=== PATIENT | male | born 1950 | race Caucasian/White ===

== ENCOUNTER 2019-02-20 09:04 | Inpatient (IN) | payer MEDICARE, OTHER ==
--- NOTE | 2019-02-19 16:45 | Pre-op HX & Phy Repo 2 SIG ---
DATE OF ADMISSION: 02/20/2019 DATE OF PLANNED SURGERY: Scheduled for admission, 02/20/2019. 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 The patient has a past history of ulcerative colitis that developed at age 18. In 1972, he underwent proctocolectomy with Gely ileostomy. In 1991, by another surgeon, he underwent creation of a Sunshine continent ileostomy. He underwent stoma revision in 2001 and again in November 2017, and ever since that surgery he has had pain whenever he intubates to insert his drainage catheter to evacuate stool and that happens with every intubation and he has bleeding as well. He has had to use a 26-Chinese silicon catheter instead of the normal 30-Chinese silicone catheter. He is scheduled to undergo pouch endoscopy and surgical correction of this problem. He understands that he may require laparotomy with creation of a new valve and stoma, possible relocation of the stoma to the left side. MEDICATIONS: Lisinopril for hypertension and statin for high cholesterol. ALLERGIES: None. OPERATIONS: Only the above. PHYSICAL EXAMINATION: The patient is 5 feet 9 inches, 160 pounds. [place] and will be examined upon arrival and dictated separately. IMPRESSION: 1. Malfunctioning Sunshine continent ileostomy with recurrent stoma stricture and stenosis. 2. History of ulcerative colitis. 3. STATUS POST MULTIPLE ABDOMINAL OPERATIONS: 3.1 Proctocolectomy and Gely ileostomy in 1972. 3.2 Sunshine continent intestinal reservoir in 1991. 3.3 revision of stoma in 2001. 3.4 Revision of stoma stricture in November 2017. 4. Hypertension. DISCUSSION: I have had a full discussion with the patient regarding his condition and the surgical options. He usually intubates four times a day and occasionally at night. I will have a detailed discussion again in person when [place] and he may be able to just have a stoma revision, but otherwise will need laparotomy with creation of a new valve and stoma with possible relocation to the left side. Osito Rosenbaum M.D. DR: PINA JOB#: [id number] CC:
[~2019-02-20] VITALS: Ht 175.3 cm; Wt 69.0 kg
--- NOTE | 2019-02-20 09:01 | Anethesia Preoperative Eval ---
Anesthesia Pre-op PMH/ROS General Date of Evaluation: Feb 20, 2019 Time of Evaluation: 09:00 Anesthesiologist: sonja ASA Score: ASA 2 Mallampati Score Class I : Soft palate, uvula, fauces, pillars visible Class II: Soft palate, uvula, fauces visible Class III: Soft palate, base of uvula visible Class IV: Only hard plate visible Mallampati Classification: Class II Surgeon: Robi Diagnosis: Malfunction of Sunshine Surgical Procedure: Revision of Sunshine pouch Anesthesia History: none Family History: no anesthesia problems Medications: see eMAR Patient NPO?: Yes NPO Date: Feb 20, 2019 NPO Time: 00:01 Past Medical History Cardiovascular: Reports: HTN; Denies: CAD, [place], valve dz, arrhythmia, other Pulmonary: Denies: asthma, COPD, MAURICE, other Gastrointestinal/Genitourinary: Reports: other - U Colitis; Denies: GERD, CRI, ESRD Neurologic/Psychiatric: Denies: dementia, depression/anxiety, TIA, other Endocrine: Denies: DM, hypothyroidism, steroids, other HEENT: Denies: cataract (L), cataract (R), glaucoma, [place] (L), [place] (R), other Hematology/Immune: Denies: anemia, DVT, bleeding disorder, other Musculoskeletal/Integumentary: Denies: OA, RA, DJD, DDD, edema, other PMH Narrative: 1. Malfunctioning Sunshine continent ileostomy with recurrent stoma stricture and stenosis. 2. History of ulcerative colitis. PSxH Narrative: multiple abd operations Anesthesia Pre-op Phys. Exam Physician Exam Constitutional: NAD Neurologic: CN 2-12 intact Cardiovascular: RRR Respiratory: CTA Gastrointestinal: S/NT/ND Airway Exam Mallampati Score: Class II MO: full ROM: full Dentures: no upper, no lower Joanna Naik CRNA Feb 20, 2019 09:01
[~2019-02-20 09:04] MED LIST: Heparin1,000 units/500ml Premix(Conc:2 units/ml) ONE; Lidocaine 1% Plain 30 ml INJ ONE
--- NOTE | 2019-02-20 09:30 | NUR ---
NURSE NOTES: Patient arrived to unit via direct admission. Patient is awake, alert and oriented, accompanied by his . Oriented to room. Patient reporting no pain at this time. Patient provided with receptacles for urine and ileo output, educated on I/O policy, patient verbalized understanding. Will follow through with orders.
[2019-02-20] MEDS ORDERED: SIMVASTATIN20 MG ORAL (10:12)
[2019-02-20] MEDS ORDERED: BACLOFEN10 MG ORAL (10:12)
[2019-02-20] MEDS ORDERED: LISINOPRIL5 MG ORAL (10:12)
[2019-02-20] MEDS ORDERED: MELOXICAM7.5 MG PO (10:12)
[2019-02-20] MEDS ORDERED: Lidocaine 1% Plain 30 ml INJ PRN (10:30)
[2019-02-20] MEDS ORDERED: Heparin1,000 units/500ml Premix(Conc:2 units/ml) IV PRN (10:30)
[2019-02-20] MEDS ORDERED: Zolpidem 5mg tab ORAL PRN (10:30)
[2019-02-20 11:32] LABS: BASOPHILS % (AUTO) 0.9 % (0.0-2.0); EOSINOPHILS % (AUTO) 4.9 % (0.0-3.0); HEMATOCRIT 44.8 % (42.0-52.0); HEMOGLOBIN 14.7 G/DL (14.2-18.0); LYMPHOCYTES % (AUTO) 13.8 % (20.0-45.0); MEAN CORPUSCULAR VOLUME 93 FL (80-99); NEUTROPHILS % (AUTO) 72.4 % (45.0-75.0); PLATELET COUNT 248 K/UL (150-450); RED BLOOD COUNT 4.82 M/UL (4.70-6.10); WHITE BLOOD COUNT 6.8 K/UL (4.8-10.8)
--- NOTE | 2019-02-20 11:38 | NUR ---
NURSE NOTES: Reviewed patient's home medications with Dr. Rosenbaum. Order received to continue patient's home medication Lisinopril and hold all others. Orders entered.
--- NOTE | 2019-02-20 11:42 | NUR ---
NURSE NOTES: Dr. Rosenbaum ordered for a STAT 2D echo due to abnormal EKG results. Order entered, called cardiology at extension [phone] and informed tech of order. Per tech, they can do 2D echo in approximately one hour. Informed Dr. Rosenbaum and stated ok to do echo in an hour.
[2019-02-20 11:51] VITALS: BP 165/85
[2019-02-20 11:57] LABS: ANION GAP 8 mmol/L (5-15); BLOOD UREA NITROGEN 15 mg/dL (7-18); CALCIUM 8.8 MG/DL (8.5-10.1); CARBON DIOXIDE 30 MMOL/L (21-32); CHLORIDE 103 MMOL/L (98-107); CREATININE 1.1 MG/DL (0.55-1.30); POTASSIUM 4.7 MMOL/L (3.5-5.1); SODIUM 141 MMOL/L (136-145)
--- NOTE | 2019-02-20 11:58 | Diagnostic Imaging Report ---
Indication: Cough Comparison: None A single view chest radiograph was obtained. Findings: There is a scarring suspected at the left lung base with the blunting of the left costophrenic angle and slight pleural tenting. Heart size is normal. No infiltrate identified in the examination. The bones are unremarkable. IMPRESSION: No acute disease. Suspected pleural parenchymal scarring at the left lung base
--- NOTE | 2019-02-20 12:00 | NUR ---
NURSE NOTES: Informed Dr. Rosenbaum of patient's increased blood pressure, no new orders given at this time. Per MD, patient to be evaluated by cardiology.
[2019-02-20 12:08] LABS: ALANINE AMINOTRANSFERASE 21 U/L (12-78); ALBUMIN 3.6 G/DL (3.4-5.0); ALBUMIN/GLOBULIN RATIO 0.9 (1.0-2.7); ALKALINE PHOSPHATASE 82 U/L (46-116); ASPARTATE AMINO TRANSFERASE 15 U/L (15-37); BILIRUBIN,TOTAL 2.3 MG/DL (0.2-1.0)
[2019-02-20] MEDS: Neomycin Sulfate 500mg Tab ORAL SCH ×3 (12:18→19:58)
--- NOTE | 2019-02-20 12:48 | Pre-Procedure Note/Attestation ---
Pre-Procedure Note/Attestation Complete Prior to Procedure Planned Procedure: not applicable Procedure Narrative: Sunshine continent ileostomy pouch endoscopy Indications for Procedure Pre-Operative Diagnosis: recurrent stoma stricture of Sunshine pouch Attestation I attest that I discussed the nature of the procedure; its benefits; risks and complications; and alternatives (and the risks and benefits of such alternatives ), prior to the procedure, with the patient (or the patient's legal player services representative). I attest that, if there was a reasonable possibility of needing a blood transfusion, the patient (or the patient's legal player services representative) was given the [facility] standardized written summary, pursuant to the [place] Blood Safety Act ([place] Health and Safety Code # 1645, as amended). I attest that I re-evaluated the patient just prior to the surgery and that there has been no change in the patient's H&P, except as documented below: none Osito Rosenbaum MD Feb 20, 2019 12:48
[2019-02-20 12:59] LABS: BILIRUBIN,DIRECT 0.3 MG/DL (0.0-0.3)
[2019-02-20 13:06] LABS: BILIRUBIN, URINE NEGATIVE (NEGATIVE); COLOR,URINE PALE YELLOW; GLUCOSE, URINE (UA) NEGATIVE (NEGATIVE); KETONES,URINE NEGATIVE (NEGATIVE); LEUKOCYTE ESTERASE ,URINE NEGATIVE (NEGATIVE); NITRITE,URINE NEGATIVE (NEGATIVE); PH,URINE 6 (4.5-8.0); PROTEIN,URINE NEGATIVE (NEGATIVE); UROBILINOGEN,URINE NORMAL MG/DL (0.0-1.0)
[2019-02-20 13:09] LABS: APPEARANCE,URINE CLEAR
--- NOTE | 2019-02-20 15:20 | NUR ---
RADIOLOGY NOTE: LEFT UPPER EXTREMITY PICC PLACED.
--- NOTE | 2019-02-20 15:42 | NUR ---
NURSE NOTES: Patient returned from radiology procedure with CONRADO double lumen PICC line with biopatch, statlock, and tegaderm dressing placed by radiologist. Awaiting ok to use order.
--- NOTE | 2019-02-20 15:57 | Cardiology Progress Note ---
Assessment/Plan Status Narrative UC Malfunctioning Sunshine Ileostomy HTN Hypercholesterolemia Assessment/Plan Increase Lisinopril to 10 mg/day Proceed with surgery in AM Will follow post OP Discussed with Dr. Rosenbaum and with RN. Subjective Cardiovascular: Reports: no symptoms; Denies: chest pain, edema, irregular heart rate, lightheadedness, palpitations, syncope Respiratory: Reports: no symptoms Gastrointestinal/Abdominal: Reports: no symptoms Genitourinary: Reports: no symptoms Subjective Patient admitted for revision of Sunshine Pouch. Pre-op EKG showed possible ANt. SC. Echo done today showed normal LV wall motion and EF. Objective Last 24 Hour Vital Signs Date Time Temp Pulse Resp B/P (MAP) Pulse Ox O2 Delivery O2 Flow Rate FiO2 02/20/19 11:51 97.2 62 16 165/85 (111) 97 02/20/19 09:40 Room Air Neck: non-tender, normal alignment, supple, normal inspection Cardiovascular: normal peripheral pulses, normal rate, regular rhythm, no gallop/murmur Respiratory/Chest: lungs clear Abdomen: normal bowel sounds, non tender, soft, no organomegaly, no mass Extremities: normal range of motion, non-tender, normal inspection, no calf tenderness, no swelling Laboratory Tests Test 02/20/19 11:20 02/20/19 12:00 White Blood Count 6.8 K/UL (4.8-10.8) Red Blood Count 4.82 M/UL (4.70-6.10) Hemoglobin 14.7 G/DL (14.2-18.0) Hematocrit 44.8 % (42.0-52.0) Mean Corpuscular Volume 93 FL (80-99) Mean Corpuscular Hemoglobin 30.5 PG (27.0-31.0) Mean Corpuscular Hemoglobin Concent 32.8 G/DL (32.0-36.0) Red Cell Distribution Width 12.0 % (11.6-14.8) Platelet Count 248 K/UL (150-450) Mean Platelet Volume 5.7 FL (6.5-10.1) L Neutrophils (%) (Auto) 72.4 % (45.0-75.0) Lymphocytes (%) (Auto) 13.8 % (20.0-45.0) L Monocytes (%) (Auto) 8.0 % (1.0-10.0) Eosinophils (%) (Auto) 4.9 % (0.0-3.0) H Basophils (%) (Auto) 0.9 % (0.0-2.0) Prothrombin Time 10.4 SEC (9.30-11.50) Prothromb Time International Ratio 1.0 (0.9-1.1) Activated Partial Thromboplast Time 32 SEC (23-33) Sodium Level 141 MMOL/L (136-145) Potassium Level 4.7 MMOL/L (3.5-5.1) Chloride Level 103 MMOL/L (98-107) Carbon Dioxide Level 30 MMOL/L (21-32) Anion Gap 8 mmol/L (5-15) Blood Urea Nitrogen 15 mg/dL (7-18) Creatinine 1.1 MG/DL (0.55-1.30) Estimat Glomerular Filtration Rate > 60 mL/min (>60) Glucose Level 148 MG/DL (74-106) H Calcium Level 8.8 MG/DL (8.5-10.1) Total Bilirubin 2.3 MG/DL (0.2-1.0) H Direct Bilirubin 0.3 MG/DL (0.0-0.3) Aspartate Amino Transf (AST/SGOT) 15 U/L (15-37) Alanine Aminotransferase (ALT/SGPT) 21 U/L (12-78) Alkaline Phosphatase 82 U/L (46-116) Total Protein 7.4 G/DL (6.4-8.2) Albumin 3.6 G/DL (3.4-5.0) Globulin 3.8 g/dL Albumin/Globulin Ratio 0.9 (1.0-2.7) L Urine Color Pale yellow Urine Appearance Clear Urine pH 6 (4.5-8.0) Urine Specific [place] 1.015 (1.005-1.035) Urine Protein Negative (NEGATIVE) Urine Glucose (UA) Negative (NEGATIVE) Urine Ketones Negative (NEGATIVE) Urine Blood Negative (NEGATIVE) Urine Nitrite Negative (NEGATIVE) Urine Bilirubin Negative (NEGATIVE) Urine Urobilinogen Normal MG/DL (0.0-1.0) Urine Leukocyte Esterase Negative (NEGATIVE) Alistair Hurst MD Feb 20, 2019 15:57
--- NOTE | 2019-02-20 15:59 | General Progress Note ---
Progress Note Progress Note H&P dictated. Pouch endoscopy reveals severe stenosis and excessive hypertrophic scarring of stoma - unable to get endoscope into stoma. Large incisional hernia in epigastrium bulging to RUQ. for 20 years told not to have it repaired BUN 17 Cr 1.1 Albumin 3.6 Imp. Recurrent stricture Bita continent ileostomy stoma Incisional hernia Plan: surgery in AM Full discussion with patient and . Osito Rosenbaum MD Feb 20, 2019 15:59
[2019-02-20 16:00] VITALS: BP 145/81
--- NOTE | 2019-02-20 16:01 | Cardiology Report ---
APPROVED REPORT EXAM: Two-dimensional and M-mode echocardiogram with Doppler and color Doppler. INDICATION ABN CARDIAC FUNCTION M-Mode DIMENSIONS IVSd0.9 (0.7-1.1cm)Left Atrium (MM)3.5 (1.6-4.0cm) LVDd4.9 (3.5-5.6cm)Aortic Root3.7 (2.0-3.7cm) PWd0.8 (0.7-1.1cm)Aortic Cusp Exc.2.1 (1.5-2.0cm) IVSs1.0 cm LVDs3.1 (2.5-4.0cm) PWs1.1 cm Normal left ventricular chamber size, systolic function and wall motion . Left ventricular ejection fraction estimated to be 60 %. No evidence of left ventricular hypertrophy . No evidence of pericardial effusion. All other cardiac chamber sizes are within normal limits. Focal aortic valve sclerosis with adequate cusp excursion. Thickened mitral valve leaflets with normal excursion. Mitral annulus and aortic root calcification. Normal pulmonic valve structure. Normal tricuspid valve structure. IVC at size 2.1 cm without physiologic collapse,suggestive of increased RA pressure. A color flow and spectral Doppler study was performed and revealed: Trace aortic regurgitation. Trace mitral regurgitation. Mitral inflow indicates normal left ventricular diastolic function Trace tricuspid regurgitation. Tricuspid systolic velocities suggests peak right ventricular systolic pressure of 19mmHg.
--- NOTE | 2019-02-20 16:06 | NUR ---
NURSE NOTES: Patient seen and evaluated by Dr. Hurst. Orders received from MD for patient's Lisinopril. Orders read back and entered.
--- NOTE | 2019-02-20 16:51 | NUR ---
NURSE NOTES: Called and spoke with Dr. Mack regarding using PICC line. Per , ok to use PICC line. Order entered.
--- NOTE | 2019-02-20 17:10 | Diagnostic Imaging Report ---
Indication: registration clerk venous access Findings: After the indications, procedure, risks, complications, and alternatives of the procedure were explained, written informed consent was obtained. The left upper extremity was prepped with alcohol. All elements of maximal sterile barrier technique were followed including usage of a cap, mask, sterile gown, sterile gloves, hand hygiene and a large sterile sheet. Sonographic evaluation of the upper extremity was performed demonstrating a patent and compressible basilic vein. Access was obtained under real-time ultrasound guidance (with utilization of sterile gel and sterile probe cover) and digital image was saved and archived. An .018 wire was introduced. Needle exchanged for a 5 Armenian peel-away sheath. Measurements were obtained. A 5 Armenian dual-lumen Power PICC line catheter was cut to 45 cm and introduced over the wire. Peel-away sheath and wire were removed.Catheter was secured to the skin using 2-0 Prolene suture. Both ports aspirate and flush easily. A single fluoroscopic image shows the distal tip in the superior vena cava. Total fluoroscopic time was 12.5 seconds. Impression: Successful placement of an upper extremity PICC line catheter
--- NOTE | 2019-02-20 18:30 | NUR ---
NURSE NOTES: Total ileo output: 700mL Total urine output: 1075mL
[2019-02-20] MEDS: D5 1/2NS w/KCl 20mEq 1,000 ML IV SCH (18:35)
--- NOTE | 2019-02-20 19:27 | NUR ---
HAND-OFF: Report given to Kinga GOODWIN.
[2019-02-20] MEDS: Dyna-Hex 2% Top Sol 2oz TOPIC SCH (19:58)
[2019-02-20 20:00] VITALS: BP 139/73
--- NOTE | 2019-02-20 20:00 | NUR ---
NURSE NOTES: Received patient awake in bed, at the bedside. CONRADO picc noted, inserted today. Demonstrated Divya Hex bath for patient and , verbalized understanding. Patient has steady gait, will ambulate in the halls with . Surgery in the AM, NPO status after midnight acknowledged by both patient and . Bed low and locked, side rails secure, patient wearing non slip socks.
--- NOTE | 2019-02-20 20:15 | Procedure Note ---
DATE OF PROCEDURE: 02/20/2019 ENDOSCOPIST: Osito Rosenbaum M.D. ANESTHESIA: None. SEDATION: None. PRE-ENDOSCOPY DIAGNOSES: 1. Recurrent stoma stricture of Sunshine continent ileostomy. 2. History of ulcerative colitis. 3. Status post multiple abdominal operations. 3.1. Proctocolectomy and Gely ileostomy in 1972. 3.2. Sunshine continent intestinal reservoir in 1991. 3.3. Revision of stoma in 2001. 3.4. Revision of stoma stricture in November 2017. POST-ENDOSCOPY DIAGNOSES: 1. Recurrent stoma stricture of Sunshine continent ileostomy. 2. History of ulcerative colitis. 3. Status post multiple abdominal operations. 3.1. Proctocolectomy and Gely ileostomy in 1972. 3.2. Sunshine continent intestinal reservoir in 1991. 3.3. Revision of stoma in 2001. 3.4. Revision of stoma stricture in November 2017. ENDOSCOPY PERFORMED: Attempted endoscopy of Sunshine pouch with stricture too small to allow scope to enter. DESCRIPTION OF PROCEDURE: The patient was positioned supine in the GI lab without any anesthesia or sedation given or required. There was marked hypertrophic skin around the stoma, which only admits a 24-[place] Shaikh catheter. The GIF-P140 endoscope would not enter without significant pain. I attempted to place a 24-[place] Shaikh into the pouch, but it kept folding on itself and the patient uses his own 26-[place] silicone catheter to intubate. He will be prepared for surgery. Osito Rosenbaum M.D. DR: RUBEN JOB#: [id number] CC: MARIA ANTONIA
--- NOTE | 2019-02-20 20:45 | Pre-op HX & Phy Repo 2 SIG ---
DATE OF ADMISSION: 02/20/2019 Please see previously dictated history. [place] He tells me that after his surgery in 1991 to convert his malfunctioning conventional ileostomy to the Sunshine continent ileostomy, he had 6 months to a year of infections in the upper portion of his incision requiring multiple treatments, procedures, intravenous antibiotics, and even suffered transient liver failure. He recovered, but was told not to have the hernia repaired. He does not have symptoms from it. PHYSICAL EXAMINATION: GENERAL: A well developed, well nourished, thin male, 5 feet 9 inches, 160 pounds stable. VITAL SIGNS: Stable. Slightly elevated blood pressure. HEENT: Within normal limits. LUNGS: Clear. HEART: Regular rhythm. BREASTS: Without masses. ABDOMEN: Soft. There is a long midline scar from xiphoid to pubis in the upper half of the incision and bulging to the right of midline into the right upper quadrant is a 8 x 10 cm fusiform, reducible, incisional hernia. The lower part of the incision is intact. The stoma of his Sunshine continent ileostomy pouch is low in the right lower quadrant with severe scarring, hypertrophic fibrosis, and stricture. GENITALIA: Within normal limits. RECTAL: Status post proctectomy. EXTREMITIES: Without edema. Pulses 3+ femoral to pedal bilaterally. NEUROLOGIC: Physiologic. IMPRESSION: 1. 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 2. Incisional hernia. 3. Hypertension. 4. History of ulcerative colitis. 5. Status post multiple abdominal operations. 5.1. Proctocolectomy and Gely ileostomy in 1972. 5.2. Sunshine continent intestinal reservoir in 1991. 5.3. Revision of Sunshine continent ileostomy stoma in 2001. 5.4. Revision of Sunshine continent ileostomy stoma stricture in November 2017. PLAN: I have had a full discussion with the patient and his regarding the nature of his condition, the nature of the surgical options, indications, alternatives, options, and risks. I have discussed the options of being able to simply do another stoma revision without laparotomy and that that will be attempted at the outside of the case, but is unlikely to be successful in view of what he has already been through. In that case, laparotomy will be performed with the primary option creation of a new valve and stoma with preservation of the existing Sunshine pouch and possible relocation of the stoma to the left lower quadrant. A second option would be to resect the pouch if it cannot be reconstructed and create a new Sunshine pouch or the third option would be to resect his current pouch and create a conventional Gely ileostomy. The patient indicates that he prefers to have the option that will be least likely to need revision surgery or future hospitalizations or issues and he completely accepts the potential for having a conventional Gely ileostomy with resection of his Sunshine pouch. I have discussed the risks of surgery including bleeding, infection, injury to adjacent structures or organs, adhesions that could lead to bowel obstruction, need for catheter gastrostomy for decompression, deep vein thrombosis despite prophylaxis etc. I have discussed the specific risks of the Sunshine pouch revision or creation of a new Sunshine pouch including potential need for reoperation for slipped valve or fistula of pouch or valve or other structural or mechanical issues with the pouch function. All questions have been answered. The patient understands and agrees to proceed. Osito Rosenbaum M.D. DR: KEITH JOB#: [id number] CC:
[2019-02-20] MEDS ORDERED: Lisinopril 2.5mg tab ORAL SCH (21:00)
--- NOTE | 2019-02-20 21:00 | NUR ---
NURSE NOTES: Spoke with Dr Hurst regarding patient's lisinopril dosing. Patient and re-educated and verbalized understanding.
[2019-02-21] VITALS (11 sets, daily range): BP systolic 127–167; BP diastolic 62–91
[2019-02-21] MEDS: Ampicillin/Sulbactam Sod 3 GM in NS 110 ML IV SCH ×5 (00:51→23:49)
[2019-02-21] MEDS: D5 1/2NS w/KCl 20mEq 1,000 ML IV SCH (05:18)
[2019-02-21] MEDS ORDERED: Heparin 5000 units/ml inj SUBQ SCH ×2 (05:30→08:00)
[2019-02-21 05:58] LABS: BASOPHILS % (AUTO) 0.7 % (0.0-2.0); EOSINOPHILS % (AUTO) 4.6 % (0.0-3.0); HEMATOCRIT 39.8 % (42.0-52.0); HEMOGLOBIN 13.3 G/DL (14.2-18.0); LYMPHOCYTES % (AUTO) 11.1 % (20.0-45.0); MEAN CORPUSCULAR VOLUME 92 FL (80-99); MONOCYTES % (AUTO) 11.1 % (1.0-10.0); NEUTROPHILS % (AUTO) 72.5 % (45.0-75.0); PLATELET COUNT 200 K/UL (150-450); RED BLOOD COUNT 4.31 M/UL (4.70-6.10); WHITE BLOOD COUNT 7.1 K/UL (4.8-10.8)
[2019-02-21 06:35] LABS: ALANINE AMINOTRANSFERASE 19 U/L (12-78); ALBUMIN 3.1 G/DL (3.4-5.0); ALKALINE PHOSPHATASE 66 U/L (46-116); ANION GAP 7 mmol/L (5-15); ASPARTATE AMINO TRANSFERASE 17 U/L (15-37); BILIRUBIN,TOTAL 1.6 MG/DL (0.2-1.0); BLOOD UREA NITROGEN 11 mg/dL (7-18); CARBON DIOXIDE 28 MMOL/L (21-32); CHLORIDE 101 MMOL/L (98-107); POTASSIUM 3.6 MMOL/L (3.5-5.1); SODIUM 136 MMOL/L (136-145)
[2019-02-21] MEDS ORDERED: Lidocaine 1% MPF 10mg/ml 5ml ONE (06:46)
[2019-02-21] MEDS ORDERED: Dexamethasone 4mg/ml vial ONE (06:46)
[2019-02-21] MEDS ORDERED: Glycopyrrolate 0.2mg/ml 1ml Vial ONE ×2 (06:46→08:47)
[2019-02-21] MEDS ORDERED: Sodium Chloride 10ml vial INJ ONE (06:46)
[2019-02-21 06:53] LABS: BILIRUBIN,DIRECT 0.2 MG/DL (0.0-0.3)
[2019-02-21] MEDS ORDERED: LR 1000ml 1,000 ML IVLG SCH (06:58)
--- NOTE | 2019-02-21 06:59 | Immediate Post-Op Evaluation ---
Immediate Post-Op Evalulation Immediate Post-Op Evalulation Procedure: Laparotomy, Revision Stoma Date of Evaluation: Feb 21, 2019 Time of Evaluation: 09:22 IV Fluids: 300 LR Blood Products: 0 Estimated Blood Loss: 10 Urinary Output: 200 Blood Pressure Systolic: 167 Blood Pressure Diastolic: 91 Pulse Rate: 76 Respiratory Rate: 16 O2 Sat by Pulse Oximetry: 100 Temperature (Fahrenheit): 98.4 Pain Score (1-10): 2 Nausea: No Vomiting: No Complications 0 Patient Status: awake, reacts, patent, extubated, none Hydration Status: adequate Dru Grams Unasyn, 500 mg Flagyl IV Given Within 1 Hr of Incision: Yes Jarvis Zuleta MD Feb 21, 2019 06:59
[2019-02-21] MEDS ORDERED: Metoclopramide 10mg/2ml Inj IVP PRN (07:00)
[2019-02-21] MEDS ORDERED: Propofol 1,000mg/ 100ml btl IV ONE (07:00)
[2019-02-21] MEDS ORDERED: fentaNYL 100 mcg/2 mL IV PRN (07:00)
[2019-02-21] MEDS ORDERED: Rocuronium Bromide 50mg/5ml Inj IV ONE (07:00)
[2019-02-21] MEDS ORDERED: HYDROcodone/Acetamin 7.5/325 tab ORAL PRN (07:00)
[2019-02-21] MEDS ORDERED: LORazepam Inj 2mg/ml 1ml IV PRN (07:00)
[2019-02-21] MEDS ORDERED: Acetaminophen (Non formulary) 100 ML IV ONE (07:00)
[2019-02-21] MEDS ORDERED: DiphenhydrAMINE 50mg/ml Inj IVP PRN (07:00)
[2019-02-21] MEDS ORDERED: oxyCODONE HCL/Acetaminophen 5/325mg ORAL PRN (07:00)
[2019-02-21] MEDS ORDERED: Hydromorphone 0.5mg/0.5ml inj IVP PRN (07:00)
[2019-02-21] MEDS ORDERED: Midazolam 2mg/2ml Inj IVP PRN (07:00)
[2019-02-21] MEDS ORDERED: HYDROcodone/Acetamin 5/325 tab ORAL PRN ×2 (07:00→09:15)
[2019-02-21] MEDS ORDERED: Atropine Sulfate 0.4mg/ml inj IVP PRN (07:00)
[2019-02-21] MEDS ORDERED: Labetalol 5mg/ml 20ml vial IV PRN (07:00)
[2019-02-21] MEDS ORDERED: Meperidine 50mg/ml Inj(FOR RIGORS ONLY) IVP PRN (07:00)
[2019-02-21] MEDS ORDERED: Bacitracin 50000 Units Vial ONE (07:03)
--- NOTE | 2019-02-21 07:13 | NUR ---
NURSE NOTES: OR transport arrived to pick patient up at 0650. Patient unable to remove wedding ring, transport aware. Abx scheduled for the rest of the day went with patient to OR. Confirmed patient identity with transport, pre-op checklist done. PICC acces patent, dressing dry and intact.
[2019-02-21] MEDS ORDERED: Lidocaine 1% Plain 30 ml INJ ONE (07:15)
--- NOTE | 2019-02-21 07:15 | Pre-Procedure Note/Attestation ---
Pre-Procedure Note/Attestation Complete Prior to Procedure Planned Procedure: not applicable Procedure Narrative: revision of Sunshine continent ileostomy recurrent stoma stricture, possible laparotomy with revision of Sunshine Pouch , possible resection of Sunshine Pouch with Gely ileostomy Indications for Procedure Pre-Operative Diagnosis: Malfunctioning Sunshine Continent Ileostomy with recurrent stoma stricture Attestation I attest that I discussed the nature of the procedure; its benefits; risks and complications; and alternatives (and the risks and benefits of such alternatives ), prior to the procedure, with the patient (or the patient's legal community representative). I attest that, if there was a reasonable possibility of needing a blood transfusion, the patient (or the patient's legal community representative) was given the [place] [facility] of Health Services standardized written summary, pursuant to the [place] Blood Safety Act ([place] Health and Safety Code # 1645, as amended). I attest that I re-evaluated the patient just prior to the surgery and that there has been no change in the patient's H&P, except as documented below: none Osito Rosenbaum MD Feb 21, 2019 07:14
--- NOTE | 2019-02-21 07:19 | NUR ---
HAND-OFF: Report given to BUDDY Bergman.
[2019-02-21] MEDS ORDERED: fentaNYL 100 mcg/2 mL IV ONE (07:23)
[2019-02-21] MEDS ORDERED: NS Irrig 1000ml IRRIG ONE ×2 (07:46→08:04)
--- NOTE | 2019-02-21 08:03 | NUR ---
NURSE NOTES: Per report pt down for surgery at 0650. Explosive Ordnance Disposal Specialist entered room to introduce self to , but she was not in room.
[2019-02-21] MEDS ORDERED: Neostigmine 1mg/ml 10ml Inj ONE (08:47)
[2019-02-21] MEDS: Lisinopril 10mg tab ORAL SCH (09:00)
[2019-02-21] MEDS ORDERED: Lisinopril 2.5mg tab ORAL SCH (09:00)
--- NOTE | 2019-02-21 09:14 | Brief Operative Note ---
Immediate Post Operative Note Operative Note Pre-op Diagnosis: Malfunctioning Sunshine Continent Ileostomy with recurrent stoma stricture Procedure: revision of Sunshine pouch stoma Post-op Diagnosis: same Post-op Diagnosis: same as pre-op Findings: consistent w/pre-op dx studies Surgeon: noah Ticket Agent: herberth Anesthesiologist: angelita Anesthesia: general Specimen: yes - stoma stricture Complications: none Condition: stable Fluids: see anesthesia record Estimated Blood Loss: minimal Drains: other - 26 Shaikh to Sunshine Pouch Implant(s) used?: No Osito Rosenbaum MD Feb 21, 2019 09:14
[2019-02-21] MEDS ORDERED: LORazepam 1mg tab SL PRN ×2 (09:15)
--- NOTE | 2019-02-21 09:26 | NUR ---
*-* INSURANCE *-* ALL AVAILABLE CLINICALS HAVE BEEN FAXED TO: [facility] P: [phone] F: [phone]
[2019-02-21] MEDS: D5 1/4NS w/KCl 20mEq 1,000 ML IV SCH ×2 (10:50→21:46)
[2019-02-21] MEDS: HYDROmorphone 1mg/ml Carpuject SUBQ PRN (11:10)
[2019-02-21] MEDS ORDERED: Ampicillin/Sulbactam Sod 3 GM in NS 110 ML IV SCH (12:00)
--- NOTE | 2019-02-21 12:00 | NUR ---
NURSE NOTES: Pt returned from surgery in stable [id number] , Sitting up on side of bed after pain medication was given. Bandage is clean in intact. Has not had his clear liquid diet upon this writing. Did have a small amount of juice tolerated well. Dilaudid Sq effective. is at bedside
--- NOTE | 2019-02-21 15:59 | NUR ---
CASE MANAGEMENT: INITIAL REVIEW 68 YR OLD MALE HERE FOR ELECTIVE SURGERY SI: MALFUNCTIONING DRAKE CONTINENT ILEOSTOMY WITH RECURRENT STOMA STRICTURE AND STENOSIS 97.2 62 16 165/85 97% ON RA IS: PICC LINE PLACED IVF DEXTROSE X1 NEOMYCIN PO TID ERYTHROMYCIN PO TID HEPARIN SQ X1 BACI IM X1 3E MED SURG PLAN: SURGERY- REVISION OF DRAKE POUCH STOMA CASE MANAGEMENT: REVIEW 02/21/19 SI: MALFUNCTIONING DRAKE CONTINENT ILEOSTOMY WITH RECURRENT STOMA STRICTURE AND STENOSIS 97.6 67 18 127/62 99% ON RA IS: SURGERY FOR REVISION OF DRAKE POUCH STOMA IV AMPICILLIN Q6HR IV METRONIDAZOLE Q6HR IVF DEXTROSE @100ML/HR : 3E MED SURG
[2019-02-21] MEDS ORDERED: NS Irrig 1000ml ONE (16:27)
[2019-02-21] MEDS ORDERED: Tubing IV Secondary IV ONE (16:27)
--- NOTE | 2019-02-21 20:03 | NUR ---
NURSE NOTES: Received report from BUDDY Bergman. Patient is sitting up in chair with at bedside. No c/o pain, nausea, or SOB on room air at this time. Ileostomy is connected to drainage bag draining green liquid to gravity. PICC line dressing and site is c/d/i and asymptomatic. Fluids running at 100mL/hr. SCDs and I/S at bedside. Will continue plan of care.
--- NOTE | 2019-02-21 20:22 | NUR ---
NURSE NOTES: Pt tolerated clear liquid diet did not have any episodes of vomitus, or nausea. Has already verbalized he is ready for an upgrade. Ambulated fully around nurses station x3. Pt did take over 5 hours for first void. No apparent reactions noted or reported from antibiotic use
[2019-02-21] MEDS: Dyna-Hex 2% Top Sol 2oz TOPIC SCH (20:24)
--- NOTE | 2019-02-21 20:24 | NUR ---
HAND-OFF: Report given to Ish made aware that he is on q3 flushing of ilesotomy ambulated 3 full lapse around nurses station oral intake 2021 urine output 950 true ilestomy output 20cc with 80cc flush.
[2019-02-22] VITALS: BP 124/65
--- NOTE | 2019-02-22 02:15 | Operative Note - Dictated ---
DATE OF OPERATION: 02/21/2019 SURGEON: Osito Rosenbaum M.D. TOOLMAKER GRADE THREE: Mj Garay M.D. ANESTHESIOLOGIST: Jarvis Zuleta M.D. TYPE OF ANESTHESIA: General. PREOPERATIVE DIAGNOSES: 1. 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 2. Incisional hernia. 3. History of ulcerative colitis. 4. STATUS POST MULTIPLE ABDOMINAL OPERATIONS: 4.1. Proctocolectomy and Gely ileostomy in 1972. 4.2. Sunshine continent intestinal reservoir in 1991. 4.3. Revision of Sunshine pouch stoma in 2001. 4.4. Revision of Sunshine pouch stoma stricture, November 2017. POSTOPERATIVE DIAGNOSES: 1. 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 2. Incisional hernia. 3. History of ulcerative colitis. 4. STATUS POST MULTIPLE ABDOMINAL OPERATIONS: 4.1. Proctocolectomy and Gely ileostomy in 1972. 4.2. Sunshine continent intestinal reservoir in 1991. 4.3. Revision of Sunshine pouch stoma in 2001. 4.4. Revision of Sunshine pouch stoma stricture, November 2017. OPERATION PERFORMED: Revision of recurrent stricture of Sunshine continent ileostomy including desmoplastic peristomal skin DESCRIPTION OF PROCEDURE: The patient was taken to the operating room and under general endotracheal anesthesia with sequential compression device stockings and Shaikh catheter in place and having received preoperative intravenous antibiotics and subcutaneous heparin, he was prepped and draped in the usual fashion. Preoperative discussion with the patient, the plan was to attempt revision of the stoma, but if that was not technically possible to create a proper stoma, then he would require laparotomy with complex revision of his pouch or resection of his pouch and creation of a conventional ileostomy. The patient was prepped and draped in usual fashion. A transversely slightly obliquely-oriented elliptical incision was made around the stoma with all of its hypertrophic chronic fibrosis and achieved hemostasis with cautery. Dissection continued into the subcutaneous tissues where the access segment was clearly visible and dissected circumferentially. The part of the stoma with the fibrosis and stricture was excised and given as pathology specimen. Releasing scar tissue circumferentially around the access segment allowed the mucosal edge to come to the skin without any tension whatsoever, there was good perfusion. Field was irrigated with antibiotic solution. Hemostasis was achieved with cautery. The medial extension of the incision was closed with 3-0 Vicryl subcutaneous suture and interrupted 4-0 Monocryl subcuticular suture. Then ,the full-thickness mucosa was sutured to the skin circumferentially with interrupted 2-0 chromic sutures. The lateral extension of the incision was narrowed with a 4-0 Monocryl subcuticular suture and the circumferential 2-0 chromic sutures completed. A very well formed stoma was achieved without any tension and with good perfusion. I attempted to insert a 28-Greenlandic Shaikh catheter into the pouch, but was unable to get it totally into the pouch. A 26-Greenlandic Shaikh catheter went readily into the pouch because for over 1 year because of the stoma stricture he has been using a 26-Greenlandic silicone catheter instead of the normal 30-Greenlandic silicone catheter for Sunshine pouch intubations. The catheter was positioned in the pouch, irrigated to confirm proper location with good return and then the catheter was sutured to the skin with two sutures of 2-0 silk and flushed and connected to gravity drainage bag. Dry sterile dressings were applied. Final sponge and needle counts were correct. Since laparotomy was not required, the Shaikh catheter in the bladder was removed. The patient tolerated the procedure well and left the operating room in good condition. Osito Rosenbaum M.D. DR: PINA JOB#: [id number] CC: MARIA ANTONIA
[2019-02-22 04:00] VITALS: BP 110/57
[2019-02-22] MEDS: D5 1/4NS w/KCl 20mEq 1,000 ML IV SCH (05:08)
[2019-02-22] MEDS: Ampicillin/Sulbactam Sod 3 GM in NS 110 ML IV SCH ×3 (05:09→18:34)
[2019-02-22 06:03] LABS: HEMATOCRIT 37.9 % (42.0-52.0); HEMOGLOBIN 12.7 G/DL (14.2-18.0); MEAN CORPUSCULAR VOLUME 92 FL (80-99); PLATELET COUNT 211 K/UL (150-450); RED BLOOD COUNT 4.11 M/UL (4.70-6.10); RED CELL DISTRIBUTION WIDTH 11.8 % (11.6-14.8); WHITE BLOOD COUNT 12.1 K/UL (4.8-10.8)
[2019-02-22 06:31] LABS: ANION GAP 0 mmol/L (5-15); BLOOD UREA NITROGEN 9 mg/dL (7-18); CALCIUM 7.8 MG/DL (8.5-10.1); CARBON DIOXIDE 27 MMOL/L (21-32); CHLORIDE 104 MMOL/L (98-107); CREATININE 1.1 MG/DL (0.55-1.30); POTASSIUM 3.9 MMOL/L (3.5-5.1); SODIUM 131 MMOL/L (136-145)
--- NOTE | 2019-02-22 07:25 | NUR ---
NURSE NOTES: Received report from BUDDY Deng. Patient A&Ox4. Sitting on bed, eating breakfast. at bedside. On room air, no signs of distress or labored breathing. PICC line intact, patent, and infusing IV fluids. Ileostomy intact, connected to drainage bag. Bed in lowest position with call light in reach. Will continue with plan of care.
--- NOTE | 2019-02-22 07:27 | NUR ---
HAND-OFF: Report given to BUDDY Zhang. Patient's increase in WBCs endorsed to AM RN and MD Rosenbaum notified. True ileostomy output is 80cc with 80cc flush for true output of 0. Urine output of 700cc. Patient eating breakfast with at bedside.
[2019-02-22] MEDS ORDERED: LR 1000ml ONE (07:30)
[2019-02-22] MEDS ORDERED: Sterile Water Irrig 1000ml IRRIG ONE (07:30)
[2019-02-22 08:00] VITALS: BP 128/61
--- NOTE | 2019-02-22 08:05 | 48 Hour Post Anesthesia Eval ---
Post Anesthesia Evaluation Procedure: Laparotomy, Revision Stoma Date of Evaluation: Feb 22, 2019 Time of Evaluation: 06:36 Blood Pressure Systolic: 110 0: 57 Pulse Rate: 54 Respiratory Rate: 18 Temperature (Fahrenheit): 97.6 O2 Sat by Pulse Oximetry: 98 Airway: patent Nausea: No Vomiting: No Pain Intensity: 1 Hydration Status: adequate Cardiopulmonary Status: Stable Follow-up Care/Observations: 0 Post-Anesthesia Complications: 0 Follow-up care needed: N/A Jarvis Zuleta MD Feb 22, 2019 08:05
[2019-02-22] MEDS: Lisinopril 10mg tab ORAL SCH (09:54)
--- NOTE | 2019-02-22 11:37 | General Progress Note ---
Progress Note Progress Note AVSS Taking no analgesics c/o soreness around stoma. Abdomen is mildly distended and tympanitic with no output from Sunshine pouch catheter overnight, but good drainage this AM and he denies any cramping Stoma is pink, incision clean and dry WBC 12,100 Na 131 Imp. Stable post-op with mild ileus Plan; Maintain continuous drainage of Sunshine pouch continue IV antibiotics BCIR diet and d/c IV fluids f/u labs Osito Rosenbaum MD Feb 22, 2019 11:37
[2019-02-22 12:00] VITALS: BP 132/63
--- NOTE | 2019-02-22 15:22 | NUR ---
CASE MANAGEMENT: REVIEW 02/22/19 SI: POD # 1 REVISION OF DRAKE POUCH STOMA/ 97.4 87 19 128/61 98% ON RA CA+ 7.8 WBC 12.1 NA 131 BG 184 ANION GAP 0 IS: IV AMPICILLIN Q6HR IV METRONIDAZOLE Q6HR DILAUDID SQ Q3/PRN : 3E MED SURG PLAN: START ON BCIR DIET DC IVF CONT IV ABX
[2019-02-22 16:00] VITALS: BP 141/78
--- NOTE | 2019-02-22 16:20 | Cardiology Progress Note ---
Assessment/Plan Status Narrative UC Malfunctioning Sunshine Ileostomy HTN- controlled Hypercholesterolemia s/p revision of ileostomy pouch Assessment/Plan Continue Lisinopril to 10 mg/day and 5 mg PRN. Ambulate I/S Routine post OP care Discussed with with RN. Will see PRN Subjective Cardiovascular: Reports: no symptoms Respiratory: Reports: no symptoms Gastrointestinal/Abdominal: Reports: abdomen distended; Denies: abdominal pain , diarrhea, vomiting Genitourinary: Reports: no symptoms Subjective 02/20-Patient admitted for revision of Sunshine Pouch. Pre-op EKG showed possible ANt. FL. Echo done today showed normal LV wall motion and EF. 02/21- s/p revision of ileostomy pouch 02/22- doing well, tolerating PO , no N/V Objective Last 24 Hour Vital Signs Date Time Temp Pulse Resp B/P (MAP) Pulse Ox O2 Delivery O2 Flow Rate FiO2 02/22/19 12:00 98.1 59 17 132/63 (86) 98 02/22/19 09:54 128/61 02/22/19 09:00 Room Air 02/22/19 08:05 54 18 98 02/22/19 08:00 97.4 87 19 128/61 (83) 98 02/22/19 04:00 97.6 54 18 110/57 (74) 98 02/22/19 00:00 97.3 60 18 124/65 (84) 98 02/21/19 21:00 Room Air 02/21/19 20:00 98.0 62 18 131/80 (97) 96 Cardiovascular: normal rate, no gallop/murmur Respiratory/Chest: lungs clear Abdomen: non tender, hypoactive bowel sounds, distended Extremities: normal range of motion, non-tender, no swelling Intake and Output 02/21/19 02/22/19 19:00 07:00 Intake Total 3522 ml 1340 ml Output Total 1180 ml 700 ml Balance 2342 ml 640 ml Intake Oral 2022 ml 240 ml IV Total 1500 ml 1100 ml Output Urine Total 1150 ml 700 ml Estimated Blood Loss 10 ml Other 20 ml 0 ml # Voids 3 Laboratory Tests Test 02/22/19 05:24 White Blood Count 12.1 K/UL (4.8-10.8) #H Red Blood Count 4.11 M/UL (4.70-6.10) L Hemoglobin 12.7 G/DL (14.2-18.0) L Hematocrit 37.9 % (42.0-52.0) L Mean Corpuscular Volume 92 FL (80-99) Mean Corpuscular Hemoglobin 30.9 PG (27.0-31.0) Mean Corpuscular Hemoglobin Concent 33.6 G/DL (32.0-36.0) Red Cell Distribution Width 11.8 % (11.6-14.8) Platelet Count 211 K/UL (150-450) Mean Platelet Volume 6.5 FL (6.5-10.1) Neutrophils (%) (Auto) % (45.0-75.0) Lymphocytes (%) (Auto) % (20.0-45.0) Monocytes (%) (Auto) % (1.0-10.0) Eosinophils (%) (Auto) % (0.0-3.0) Basophils (%) (Auto) % (0.0-2.0) Differential Total Cells Counted 100 Neutrophils % (Manual) 90 % (45-75) H Lymphocytes % (Manual) 5 % (20-45) L Monocytes % (Manual) 5 % (1-10) Eosinophils % (Manual) 0 % (0-3) Basophils % (Manual) 0 % (0-2) Band Neutrophils 0 % (0-8) Platelet Estimate Adequate Platelet Morphology Normal Sodium Level 131 MMOL/L (136-145) L Potassium Level 3.9 MMOL/L (3.5-5.1) Chloride Level 104 MMOL/L (98-107) Carbon Dioxide Level 27 MMOL/L (21-32) Anion Gap 0 mmol/L (5-15) L Blood Urea Nitrogen 9 mg/dL (7-18) Creatinine 1.1 MG/DL (0.55-1.30) Estimat Glomerular Filtration Rate > 60 mL/min (>60) Glucose Level 184 MG/DL (74-106) H Calcium Level 7.8 MG/DL (8.5-10.1) L Alistair Hurst MD Feb 22, 2019 16:20
--- NOTE | 2019-02-22 19:20 | NUR ---
HAND-OFF: Report given to BUDDY Deng.
[2019-02-22 20:00] VITALS: BP 140/71
[2019-02-22] MEDS: Dyna-Hex 2% Top Sol 2oz TOPIC SCH (20:13)
--- NOTE | 2019-02-22 21:13 | NUR ---
NURSE NOTES: Received report from BUDDY Zhang. Patient is ambulating in the hallway with family at his side. Steady gait. Ileostomy draining to gravity green liquid. PICC dressing and site is c/d/i and asymptomatic. No c/o pain or SOB on room air. Flushed ileostomy tube with 20cc of NS. Will continue plan of care.
[2019-02-23] VITALS: BP 149/75
[2019-02-23] MEDS: Ampicillin/Sulbactam Sod 3 GM in NS 110 ML IV SCH ×4 (00:06→18:00)
[2019-02-23 04:00] VITALS: BP 144/73
[2019-02-23 06:21] LABS: BASOPHILS % (AUTO) 0.5 % (0.0-2.0); EOSINOPHILS % (AUTO) 2.3 % (0.0-3.0); HEMATOCRIT 35.2 % (42.0-52.0); HEMOGLOBIN 11.9 G/DL (14.2-18.0); LYMPHOCYTES % (AUTO) 11.4 % (20.0-45.0); MEAN CORPUSCULAR VOLUME 92 FL (80-99); NEUTROPHILS % (AUTO) 77.7 % (45.0-75.0); PLATELET COUNT 185 K/UL (150-450); RED BLOOD COUNT 3.81 M/UL (4.70-6.10); RED CELL DISTRIBUTION WIDTH 12.2 % (11.6-14.8); WHITE BLOOD COUNT 9.1 K/UL (4.8-10.8)
[2019-02-23 06:40] LABS: ANION GAP 6 mmol/L (5-15); BLOOD UREA NITROGEN 14 mg/dL (7-18); CALCIUM 7.6 MG/DL (8.5-10.1); CARBON DIOXIDE 28 MMOL/L (21-32); CHLORIDE 110 MMOL/L (98-107); CREATININE 1.2 MG/DL (0.55-1.30); POTASSIUM 3.6 MMOL/L (3.5-5.1); SODIUM 144 MMOL/L (136-145)
--- NOTE | 2019-02-23 07:29 | NUR ---
HAND-OFF: Report given to BUDDY Bergman. Patient in stable condition.
[2019-02-23] MEDS: Ascorbic Acid 500mg tab ORAL PRN ×4 (07:58→21:28)
[2019-02-23 08:00] VITALS: BP 147/76
--- NOTE | 2019-02-23 08:24 | NUR ---
NURSE NOTES: Pt stated he was feeling bloated. Abdomen firm to touch bowel sounds hypoactive to the rt lower quadrant. Output to ileostomy thick in tubing . Dr Rosenbaum gave instructions to irrigate pouch, and place pt NPO except ice chips and medications Charge Nurse made aware , assisted with irrigation attempted . After flushing attempted aspiration attempted with resistance. Pt instructed to stand, to facilitate gravity flow, minimal flow no color. Vit C given. to standing ileostomy bag emptied at this time for accurate output assessment. 50 cc at this time . Pt walked around several rounds to end of hallway. Denies pain , but states he feels full. .
--- NOTE | 2019-02-23 08:34 | NUR ---
NURSE NOTES: Dr Rosenbaum phoned informed that there is very minimal output . Verbal message left Dr Rosenbaum in regards to IV fluids 2 to NPO status.
--- NOTE | 2019-02-23 08:56 | General Progress Note ---
Progress Note Progress Note AVSS Now c/o bloating. Yesterday had 470cc BCIR ileo output, ovlernight 160 somewhat thick - no nil Abdomen more distended, soft, non-tender, tympanitic Stoma pink, mild soft tissue swelling Sunshine pouch catheter in good position and flushes freely with scant return WBC [id number] Hgb down 11.9 Na 144 K 3.6 BUN up 14 Cr 1.2 Imp. Ileus despite no intra-abdominal procedure, complex revision of stoma in depth vs. malposition of pouch catheter (unlikely) Plan: NPO, IV fluids Ambulate f/u labs Osito Rosenbaum MD Feb 23, 2019 08:56
[2019-02-23] MEDS ORDERED: Mineral Oil 30ml ud ORAL SCH (08:57)
[2019-02-23] MEDS: Lisinopril 10mg tab ORAL SCH (09:18)
[2019-02-23] MEDS: D5 1/2NS w/KCl 20mEq 1,000 ML IV SCH ×2 (09:49→18:01)
[2019-02-23 12:00] VITALS: BP 119/76
[2019-02-23] MEDS: HYDROmorphone 1mg/ml Carpuject SUBQ PRN (13:36)
[2019-02-23] MEDS ORDERED: NS Irrig 1000ml ONE (16:37)
[2019-02-23] MEDS ORDERED: Tubing IV Secondary IV ONE (16:37)
[2019-02-23] MEDS ORDERED: NS 275ml ONE (16:37)
--- NOTE | 2019-02-23 16:45 | NUR ---
NURSE NOTES: phoned to report complaints of abdominal pain pt rubbing above bladder. Bladder scan was initially refused pt became upset, " Why do I need that , you see my peeing all days" Pt educated on location of bladder, " I think my pouch is pressing on my bladder" Scan rendered and orders received to insert f/c stat with 1400 cc output. Verbalized relief after de los santos placement
--- NOTE | 2019-02-23 16:47 | NUR ---
NURSE NOTES: Insert Shaikh catheter as ordered and removed 1400 ml urine. Per patient: he feels better. Patient tolerated procedure well. Will continue to monitor.
--- NOTE | 2019-02-23 19:40 | NUR ---
NURSE NOTES: Received report from BUDDY Bergman. Rounds done, patient dozing off. at bedside. Bed in low position, locked, side rails up, call light within reach.
--- NOTE | 2019-02-23 19:49 | NUR ---
NURSE NOTES: [employer] Worker phoned DR Rosenbaum in regards to ileostomy output and ileostomy = 0 ... total flush 440 and total output 440. Total urinary output 1900. Pt required emotional support, due to distress from unexpected low output from ileostomy. Required encouragement to allow aligner typewriter and charge nurse insert, catheter, to ileostomy, " I know my body I have been doing this for years. Pt is currently sleeping no longer has pain. Walked small distances , in room, sat up in chair . Upon this writing Dr Rosenbaum has not returned phoned call. Endorsed to oncoming nurse that Dr Rosenbaum was phoned for ileostomy output being zero. No side effects from antibiotics noted or reported
--- NOTE | 2019-02-23 19:55 | NUR ---
HAND-OFF: Report given to Nadine GOODWIN.
[2019-02-23 20:00] VITALS: BP 144/72
--- NOTE | 2019-02-23 20:45 | NUR ---
NURSE NOTES: Patient ambulating in hallway with minimal to no assistance, tolerating well.
--- NOTE | 2019-02-23 21:00 | NUR ---
NURSE NOTES: Patient alert, Sitting up in chair, no distress noted. Shaikh catheter to gravity, clear yellow urine. Ileo to drainage. Patient wishes to continue taking Vit C to thin stool. Aware of status NPO. IVF infusing well in PICC. Patient states pain of 1/10, feeling well. Tolerated ambulation very well. Bed in low position, locked, side rails up x2, call light within reach. Will continue to monitor..
[2019-02-23] MEDS: Dyna-Hex 2% Top Sol 2oz TOPIC SCH (21:28)
[2019-02-24] VITALS (8 sets, daily range): BP systolic 124–162; BP diastolic 54–83
[2019-02-24] MEDS: Ampicillin/Sulbactam Sod 3 GM in NS 110 ML IV SCH ×4 (00:55→17:57)
[2019-02-24] MEDS: D5 1/2NS w/KCl 20mEq 1,000 ML IV SCH ×3 (02:44→17:57)
[2019-02-24 05:01] LABS: BASOPHILS % (AUTO) 0.8 % (0.0-2.0); EOSINOPHILS % (AUTO) 4.8 % (0.0-3.0); HEMATOCRIT 32.8 % (42.0-52.0); LYMPHOCYTES % (AUTO) 12.3 % (20.0-45.0); MEAN CORPUSCULAR VOLUME 92 FL (80-99); MONOCYTES % (AUTO) 10.5 % (1.0-10.0); NEUTROPHILS % (AUTO) 71.7 % (45.0-75.0); PLATELET COUNT 161 K/UL (150-450); RED BLOOD COUNT 3.56 M/UL (4.70-6.10); RED CELL DISTRIBUTION WIDTH 12.1 % (11.6-14.8); WHITE BLOOD COUNT 6.7 K/UL (4.8-10.8)
[2019-02-24 05:28] LABS: ALANINE AMINOTRANSFERASE 17 U/L (12-78); ALBUMIN 2.6 G/DL (3.4-5.0); ALKALINE PHOSPHATASE 50 U/L (46-116); ANION GAP 5 mmol/L (5-15); ASPARTATE AMINO TRANSFERASE 11 U/L (15-37); BILIRUBIN,TOTAL 0.9 MG/DL (0.2-1.0); BLOOD UREA NITROGEN 7 mg/dL (7-18); CALCIUM 7.3 MG/DL (8.5-10.1); CARBON DIOXIDE 29 MMOL/L (21-32); CHLORIDE 109 MMOL/L (98-107); CREATININE 1.1 MG/DL (0.55-1.30); POTASSIUM 3.6 MMOL/L (3.5-5.1); SODIUM 143 MMOL/L (136-145)
[2019-02-24 06:43] LABS: % IRON SATURATION 26 % (15-50); IRON 48 ug/dL (50-175); TOTAL IRON BINDING CAPACITY 185 ug/dL (250-450)
--- NOTE | 2019-02-24 07:36 | NUR ---
HAND-OFF: Report given to BUDDY Jalloh.
--- NOTE | 2019-02-24 07:45 | NUR ---
NURSE NOTES: Received report from Nadine GOODWIN. Patient is awake and oriented, no acute distress noted, reporting no pain at this time. Ileo and de los santos to gravity drainage. IVF and antibiotic running through CONRADO PICC, dressing dry and intact. Patient's updated on plan of care for the day. Side rails upx2, bed low and locked, call light within reach.
[2019-02-24] MEDS: Lisinopril 10mg tab ORAL SCH (08:52)
[2019-02-24] MEDS ORDERED: Vitamin B12 1000mcg/ml Inj IM SCH (09:00)
--- NOTE | 2019-02-24 09:20 | General Progress Note ---
Progress Note Progress Note AVSS Developed urinary retention with 1400cc in bladder after Shaikh placed. Also RNs replaced Sunshine pouch catheter with his 26Fr silicone Shaikh with better output and less abdominal distention Abdomen mildly distended, tympanitic Stoma is pink and peristomal incision is healing nicely Urine 2475 BCIR ileo 95cc overnight Hgb down 11.1 BUN 7 Cr 1.1 Iron 48 B12 163 Folic acid wnl Imp: Ileus Acute urinary retention Severe iron and vitamin B12 deficiency (present on admission) Plan: NPO Venofer; B12 IM Urology evaluation Maintain continuous drainage of Sunshine continent ileostomy pouch Osito Rosenbaum MD Feb 24, 2019 09:20
[2019-02-24] MEDS ORDERED: NS Irrig 1000ml ONE (10:28)
[2019-02-24] MEDS ORDERED: NS 500ML ONE (10:28)
[2019-02-24] MEDS ORDERED: Tubing IV Secondary IV ONE (10:28)
--- NOTE | 2019-02-24 16:30 | Consultation ---
DATE OF CONSULTATION: 02/24/2019 CONSULTING PHYSICIAN: Oz Castro M.D. REFERRING PHYSICIAN: Osito Rosenbaum M.D. REASON FOR CONSULTATION: Evaluation of urinary retention. HISTORY OF PRESENT ILLNESS: This is a 68-year-old pleasant gentleman. He has history of ulcerative colitis. He has history of previous colectomy, multiple abdominal operation. He has a history of Sunshine intestinal reservoir and he is status post revision of recurrent stricture of the Sunshine continent ileostomy, which was performed three days ago. Yesterday, he developed urinary retention with 1400 mL in the bladder and Shaikh catheter was placed. Urology evaluation was requested. [place]. He denies previous difficulty voiding, has not been on any prostate related medications. PAST MEDICAL HISTORY: Significant for above. PAST SURGICAL HISTORY: As above. MEDICATIONS: Current medication list in the hospital was reviewed. ALLERGIES: No known drug allergies. FAMILY HISTORY: Noncontributory. REVIEW OF SYSTEMS: No chest pain. PHYSICAL EXAMINATION: GENERAL: This is a well-developed, well-nourished male, in no acute distress. VITAL SIGNS: Temperature is 98.1, blood pressure 146/69, pulse 58, respirations are 16. HEENT: Normocephalic. ABDOMEN: Soft. There is ileostomy. He also has a 16-Kiswahili Shaikh catheter. Urine is grossly yellow. RECTAL: I am not able to do rectal examination as the patient does not have a rectum. LABORATORY DATA: UA on admission was negative. White count 6.7, hemoglobin 11.0, and platelets are 161. BUN is 7, creatinine 1.1. Potassium is 3.6. INR is 1.0. DIAGNOSTIC IMAGING STUDIES: The patient's imaging was reviewed. There is no renal imaging. IMPRESSION: 1. Urinary retention. 2. Presumed BPH. 3. 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 PLAN AND DISCUSSION: Again, the patient did have urinary retention with significant residual. Shaikh catheter is indwelling. The patient's urinary retention most likely secondary to probable BPH related to bladder outlet obstruction because of his age and also atonic bladder because of recent surgery, anesthesia, possible pain medications, and decreased mobility. At this time, again Shaikh is indwelling and I will add empiric Flomax 0.4 mg to start today and we can do voiding trial in a few days once he is a bit more ambulatory and he has been on Flomax. I will follow the patient. Any other recommendations will be forthcoming. Thank you, Dr. Rosenbaum, for asking me to see this patient in consultation. Oz Castro M.D. DR: Kristyn JOB#: [id number] CC:
--- NOTE | 2019-02-24 16:36 | NUR ---
NURSE NOTES: Called Dr. Hurst and left voicemail for MD regarding patient's elevated blood pressure (162/83 at 1600 and 162/78 when rechecked). Awaiting callback for further orders.
[2019-02-24] MEDS ORDERED: Lisinopril 10mg tab ORAL PRN (17:00)
--- NOTE | 2019-02-24 17:03 | NUR ---
NURSE NOTES: Received call back from Dr. Hurst with orders for Lisinopril 10mg PO daily PRN systolic blood pressure greater than 150. MD ordered to give the first dose now. Order read back and entered. Will follow through as ordered.
[2019-02-24] MEDS: Lisinopril 10mg tab ORAL PRN (17:21)
--- NOTE | 2019-02-24 18:22 | NUR ---
NURSE NOTES: Total ileo output for my shift: +320mL Total urine output: 1475mL
--- NOTE | 2019-02-24 19:24 | NUR ---
HAND-OFF: Report given to Lashawn GOODWIN.
--- NOTE | 2019-02-24 19:55 | NUR ---
NURSE NOTES: Received report from Yeimi GOODWIN. Patient is awake and oriented x4, no acute distress noted, reporting no pain at this time. Ileo and de los santos draining to gravity, patent. IVF and antibiotic running through CONRADO PICC, dressing, clean, dry and intact. Patient and spouse updated on plan of care. Sitting up in a chair, watching a movie with his . Has friendly disposition. call light within reach. will continue to monitor
[2019-02-24] MEDS: Dyna-Hex 2% Top Sol 2oz TOPIC SCH (20:54)
[2019-02-24] MEDS: Tamsulosin 0.4mg cap ORAL SCH (20:54)
[2019-02-24] MEDS: Iron Sucrose 100 MG in NS 55 ML IV SCH (20:56)
[2019-02-25] VITALS: BP 144/76
[2019-02-25] MEDS: Ampicillin/Sulbactam Sod 3 GM in NS 110 ML IV SCH ×5 (00:15→23:30)
[2019-02-25] MEDS: D5 1/2NS w/KCl 20mEq 1,000 ML IV SCH ×3 (03:25→11:45)
[2019-02-25 04:00] VITALS: BP 132/72
[2019-02-25 07:30] LABS: BASOPHILS % (AUTO) 0.8 % (0.0-2.0); EOSINOPHILS % (AUTO) 6.9 % (0.0-3.0); HEMATOCRIT 30.8 % (42.0-52.0); HEMOGLOBIN 10.5 G/DL (14.2-18.0); LYMPHOCYTES % (AUTO) 9.4 % (20.0-45.0); MEAN CORPUSCULAR VOLUME 91 FL (80-99); MONOCYTES % (AUTO) 9.5 % (1.0-10.0); NEUTROPHILS % (AUTO) 73.4 % (45.0-75.0); PLATELET COUNT 141 K/UL (150-450); RED CELL DISTRIBUTION WIDTH 10.9 % (11.6-14.8); WHITE BLOOD COUNT 6.7 K/UL (4.8-10.8)
--- NOTE | 2019-02-25 07:35 | NUR ---
HAND-OFF: Report given to BUDDY Sandoval. Addendum: 02/25/19 at 0748 by Lashawn Dwyer RN HAND-OFF: Report given to CLAUDIA Moore.
[2019-02-25 07:36] LABS: ANION GAP 3 mmol/L (5-15); BLOOD UREA NITROGEN 4 mg/dL (7-18); CALCIUM 6.7 MG/DL (8.5-10.1); CARBON DIOXIDE 29 MMOL/L (21-32); CHLORIDE 103 MMOL/L (98-107); POTASSIUM 5.4 MMOL/L (3.5-5.1); SODIUM 135 MMOL/L (136-145)
--- NOTE | 2019-02-25 07:39 | NUR ---
HAND-OFF: Report given to CLAUDIA Moore.
[2019-02-25 08:00] VITALS: BP 147/77
--- NOTE | 2019-02-25 08:20 | General Progress Note ---
Progress Note Progress Note AVSS Denies and abdominal or GI complaints Abdomen is still slightly distended in upper abdomen and tympanitic. Stoma is pink and peristomal incision is clean Urine 3200 BCIR ileo 690 Labs - need to be re-drawn Dr. Castro evaluation appreciated Imp. Resolving ileus Urinary retention Plan: STAT portable KUB XRay clear liquid diet as tolerated maintain continuous drainage of Sunshine Pouch, continue Shaikh per Urology re-draw labs Osito Rosenbaum MD Feb 25, 2019 08:20
--- NOTE | 2019-02-25 08:35 | NUR ---
NURSE NOTES: Dr Rosenbaum has seen pt , bandage changed. Has some abdominal bloating. FC in place, Diet has been upgraded to clear liquid diet, dietary phoned for a tray. remains on bedside. I and O will continue, to be monitored. Pt remains on q3 hour flush to ileostomy. Pt made aware of symptoms to report. Abdominal pain, increase bloating, Will continue current plan of care.
--- NOTE | 2019-02-25 08:58 | Urology Progress Note ---
Assessment/Plan Assessment/Plan: 1. Urinary retention. 2. Presumed BPH. 3. 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 de los santos indwelling flomax added voiding trial tomorrow am Subjective Allergies: Coded Allergies: NO KNOWN ALLERGIES (Verified Allergy, Unknown, 02/20/19) Subjective feels fair Objective Last 24 Hour Vital Signs Date Time Temp Pulse Resp B/P (MAP) Pulse Ox O2 Delivery O2 Flow Rate FiO2 02/25/19 04:00 98.1 60 18 132/72 (92) 98 02/25/19 00:00 97.8 58 17 144/76 (98) 97 02/24/19 21:00 Room Air 02/24/19 20:00 98.1 61 19 155/78 (103) 99 02/24/19 18:34 60 159/80 (106) 02/24/19 17:21 162/78 02/24/19 16:32 58 162/78 (106) 02/24/19 16:00 98.4 57 18 162/83 (109) 98 02/24/19 12:56 98.1 58 16 146/69 (94) 98 02/24/19 09:00 Room Air Intake and Output 02/24/19 02/25/19 19:00 07:00 Intake Total 1795 ml Output Total 1795 ml Balance 0 ml IV Total 1795 ml Output Urine Total 1475 ml Other 320 ml Current Medications Medications (Trade) Dose Ordered Sig/Bishop Route PRN Reason Start Time Stop Time Status Last Admin Dose Admin Acetaminophen (Tylenol) 650 mg Q4H PRN ORAL Mild Pain/Temp > 100.2 02/21/19 09:15 03/23/19 09:14 Acetaminophen/ Hydrocodone Bitart ([place]elle 5/325) 1 tab Q4H PRN ORAL Moderate Pain (Pain Scale 4-6) 02/21/19 09:15 02/28/19 09:14 Ampicillin Sodium/ Sulbactam Sodium 3 gm/Sodium Chloride 110 ml @ 220 mls/hr EVERY 6 HOURS IV 02/21/19 00:00 02/28/19 00:00 02/25/19 05:46 Ascorbic Acid (Vitamin C) 500 mg NEEDED PRN ORAL thick ileostomy effluent 02/22/19 11:30 03/24/19 11:29 02/23/19 21:28 Atorvastatin Calcium (Lipitor) 10 mg BEDTIME ORAL 02/22/19 21:00 03/24/19 20:59 02/24/19 20:55 Chlorhexidine Gluconate (Divya-Hex 2%) 1 applic DAILY@2000 TOPIC 02/20/19 20:00 03/22/19 19:59 02/24/19 20:54 Dextrose/ Electrolytes 1,000 ml @ 125 mls/hr Q8H IV 02/23/19 10:00 03/25/19 09:59 02/25/19 03:25 Diphenhydramine HCl (Benadryl) 25 mg Q4H PRN ORAL Itching/Pruritis 02/22/19 21:30 03/24/19 21:29 02/22/19 21:30 Hydromorphone HCl (Dilaudid) 1 mg Q3H PRN SUBQ Severe Pain (Pain Scale 7-10) 02/21/19 09:15 02/28/19 09:14 02/23/19 13:36 Iron Sucrose 100 mg/Sodium Chloride 60 ml @ 240 mls/hr BEDTIME IV 02/24/19 21:00 02/28/19 21:14 02/24/19 20:56 Lisinopril (ZestriL) 10 mg DAILY ORAL 02/21/19 09:00 03/23/19 08:59 02/24/19 08:52 Lisinopril (ZestriL) 10 mg DAILYPRN PRN ORAL SBP>150 02/24/19 17:15 03/26/19 16:59 02/24/19 17:21 Lorazepam (Ativan) 1 mg HSPRN PRN SL Sleep 02/21/19 09:15 02/28/19 09:14 Lorazepam (Ativan) 1 mg Q4H PRN SL Muscle Spasm 02/21/19 09:15 02/28/19 09:14 Metronidazole 100 ml @ 100 mls/hr EVERY 6 HOURS IV 02/21/19 00:00 02/28/19 00:00 02/25/19 05:47 Ondansetron HCl (Zofran) 4 mg Q4H PRN IVP Nausea & Vomiting 02/21/19 09:15 03/23/19 09:14 Tamsulosin HCl (Flomax) 0.4 mg BEDTIME ORAL 02/24/19 21:00 03/26/19 20:59 02/24/19 20:54 Zolpidem Tartrate (Ambien) 5 mg HSPRN PRN ORAL Insomnia 02/20/19 10:30 02/27/19 10:29 Laboratory Tests 02/25/19 05:40: White Blood Count 6.7, Red Blood Count 3.40L, Hemoglobin 10.5L, Hematocrit 30.8L , Mean Corpuscular Volume 91, Mean Corpuscular Hemoglobin 30.8, Mean Corpuscular Hemoglobin Concent 34.0, Red Cell Distribution Width 10.9L, Platelet Count 141L, Mean Platelet Volume 6.7, Neutrophils (%) (Auto) 73.4, Lymphocytes (%) (Auto) 9.4L, Monocytes (%) (Auto) 9.5, Eosinophils (%) (Auto) 6.9H, Basophils (%) (Auto) 0.8, Sodium Level 135L, Potassium Level 5.4H, Chloride Level 103, Carbon Dioxide Level 29, Anion Gap 3L, Blood Urea Nitrogen 4L, Creatinine 1.0, Estimat Glomerular Filtration Rate > 60, Glucose Level 453#H , Calcium Level 6.7L Height (Feet): 5 Height (Inches): 9.00 Weight (Pounds): 156 Objective exam stable Oz Castro MD Feb 25, 2019 08:58
[2019-02-25] MEDS: Lisinopril 10mg tab ORAL SCH (09:00)
[2019-02-25] MEDS: Ascorbic Acid 500mg tab ORAL PRN (09:33)
[2019-02-25 09:46] LABS: BASOPHILS % (AUTO) 0.5 % (0.0-2.0); EOSINOPHILS % (AUTO) 5.1 % (0.0-3.0); HEMATOCRIT 37.3 % (42.0-52.0); HEMOGLOBIN 12.7 G/DL (14.2-18.0); LYMPHOCYTES % (AUTO) 7.2 % (20.0-45.0); MEAN CORPUSCULAR VOLUME 91 FL (80-99); NEUTROPHILS % (AUTO) 80.2 % (45.0-75.0); PLATELET COUNT 199 K/UL (150-450); RED BLOOD COUNT 4.11 M/UL (4.70-6.10); RED CELL DISTRIBUTION WIDTH 11.1 % (11.6-14.8); WHITE BLOOD COUNT 8.1 K/UL (4.8-10.8)
[2019-02-25 10:03] LABS: ANION GAP 10 mmol/L (5-15); BLOOD UREA NITROGEN 3 mg/dL (7-18); CARBON DIOXIDE 26 MMOL/L (21-32); CHLORIDE 105 MMOL/L (98-107); CREATININE 1.1 MG/DL (0.55-1.30); POTASSIUM 3.9 MMOL/L (3.5-5.1); SODIUM 140 MMOL/L (136-145)
--- NOTE | 2019-02-25 10:12 | NUR ---
RADIOLOGY: PKUB COMPLETED 1010 HRS. NF
--- NOTE | 2019-02-25 11:00 | Diagnostic Imaging Report ---
Indication: Abdominal distention Technique: Supine view of the abdomen Comparison: none Findings: Due to clips and surgical anastomotic staple lines are seen in the pelvis, consistent with prior continent ileostomy pouch. A rounded opacity is seen in the pelvic midline. This may represent retained contrast, among other possibilities. There is evidence of a catheter within the pouch. There is a Shaikh catheter. Upper limits of normal caliber gas-filled small bowel loops are seen in the left mid abdomen. Impression: Postsurgical changes as noted. No definite acute process
--- NOTE | 2019-02-25 11:32 | NUR ---
NURSE NOTES: Pt tolerated clear liquid diet, at bedside attempting to give him orange juice. Pt made aware that due to clear liquid diet , and possibly causing increase discomfort due to acidic nature.
--- NOTE | 2019-02-25 11:52 | NUR ---
*-* INSURANCE *-* ALL AVAILABLE CLINICALS HAVE BEEN FAXED TO: [facility] P: [phone] F: [phone]
[2019-02-25 12:00] VITALS: BP 139/83
--- NOTE | 2019-02-25 15:12 | NUR ---
CASE MANAGEMENT:REVIEW 02/25/19 SI: POD #4 S/P REVISION OF DRAKE CONTINENT ILEOSTOMY RESOLVING ILEUS 97.5 62 17 147/77 98% ON RA H/H-12.7/37.3 GLUCOSE+168 IS: IV FLAGYL Q6HRS IV AMPICILLIN Q6HRS IVF@50/HR IV VENOFER QHS FLOMAX PO QHS LISINOPRIL PO QD : MED/SURG STATUS 3 EAST PLAN: STAT KUB START CLEAR LIQUIDS maintain continuous drainage for drake pouch de los santos per urology
--- NOTE | 2019-02-25 15:18 | NUR ---
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 CURRENT DIET:CLEAR LIQUID DIET PO DIET RECOMMENDATIONS: Advance diet per MD -> BCIR low residue ADDITIONAL RECOMMENDATIONS: * Weekly standing wt monitoring * Monitor BGs: elevated (drawn from PICC line ?) -> Check A1C * Monitor CLD status, ability to advance diet -> Monitor need for TPN * Ensure CLEAR TID while on CLD
[2019-02-25 16:00] VITALS: BP 158/83
--- NOTE | 2019-02-25 18:27 | NUR ---
NURSE NOTES: Pt tolerated all meals, without experiencing any periods of nausea or vomiting. Ambulated multiple times around the nurses station with his . Output to Ileostomy thin dark brown in color no odor, even though pt is NPO solid particles were noted in output. Urine put from de los santos was continuous, Collection bag required to be emptied for comfort.; intial output for 0900 was 1100 cc straw in color clear without presence of sediment. Call light is in reach did not have any concern with pain this shift, Ileostomy output was thin therefore Vit C was not given. No noted possible s/e related to antibiotic therapy. Current plan of care will be followed Urine Output 3100 Ileostomy Output 950- Ileostomy Flush 100 = True output at 850 Total intake fluids 2745 Pt in stable condition
--- NOTE | 2019-02-25 19:25 | NUR ---
HAND-OFF: Report given to o made aware to cover pt before attempting to flush for privacy Pt is ambulatory and has walked several times around nurses station... Oncoming nurse made awre that output is thin and flowing well , if output becomes thick pt has Vit C available Ileostomy Output 850 Urine Output 3100 Oral Intake 2745 clear liquid diet Full assesment required due to pt not being able to distinguish discomfort in abdomen or bladder.
--- NOTE | 2019-02-25 19:30 | NUR ---
NURSE NOTES: Receive a report from BUDDY Bergman. Round is done. Pt is awake and alert. No acute distress noted. Denies pain. Shaikh catheter is inserted state and patent with pale color urine. Ileostomy is natural gravity with 20 NS flushing q 3hrs. Running main fluid via PICC via CONRADO. Call light within reach. Will continue to monitor.
[2019-02-25 20:00] VITALS: BP 149/81
[2019-02-25] MEDS: Tamsulosin 0.4mg cap ORAL SCH (20:42)
[2019-02-25] MEDS: Dyna-Hex 2% Top Sol 2oz TOPIC SCH (20:43)
[2019-02-25] MEDS: Iron Sucrose 100 MG in NS 55 ML IV SCH (20:43)
--- NOTE | 2019-02-25 21:00 | NUR ---
NURSE NOTES: Flushed patient's ileostomy with 20 cc of normal saline. Drainage from ileostomy is draining well without thickening. No complaints noted for discomfort, abdominal bloating, or pain. There was a lot of gas present in the drainage bag. Output emptied. De Los Santos cath intact draining urine, light fabienne in color and clear without sediments. PICC line site cleaned with lisa-hex 2%, PICC line site intact with clean and dry dressing. Explained nursing care prior and during the process. Patient tolerated the process well. Will continue to monitor and provide care as ordered. Dr. Castro came into see the patient and gave an order to remove the de los santos cath in the morning at 0800. Patient aware of 's order. Will endorse to the dayshift.
[2019-02-26] VITALS: BP 149/78
--- NOTE | 2019-02-26 03:00 | NUR ---
NURSE NOTES: Patient reported new symptom of sore throat. Provided nonpharmacological measure of salt water gargle. Patient performed gargle without any discomfort and informed to notify the RN if the symptom persists. Air conditioner has been switched to low from medium and room temperature confirmed with the patient. Will continue to monitor and provide care as ordered.
[2019-02-26 04:00] VITALS: BP 146/74
[2019-02-26] MEDS: Ampicillin/Sulbactam Sod 3 GM in NS 110 ML IV SCH ×4 (05:19→23:46)
--- NOTE | 2019-02-26 06:00 | NUR ---
NURSE NOTES: Total true output for ileostomy 725ml. Total de los santos output 1975ml. Flushed ileostomy Q3hrs with 20ml of normal saline. No complaints noted throughout the shift.
--- NOTE | 2019-02-26 07:28 | NUR ---
NURSE NOTES: WALKING ROUNDS DONE WITH OUTGOING RN.PATIENT AWAKE IN BED HAVING BREAKFAST. DENIES ABDOMINAL PAIN. ILEOSTOMY DRAINING WELL. QUESTIONS ANSWERED NEEDS MET. DISCUSSED PLAN OF CARE FOR THE DAY. VERBALIZED UNDERSTANDING. CALL LIGHT WITHIN REACH. BED IN LOW AND LOCKED POSITION.
--- NOTE | 2019-02-26 07:32 | NUR ---
HAND-OFF: Report given to BUDDY Noyola.
[2019-02-26 08:00] VITALS: BP 140/74
[2019-02-26] MEDS: Lisinopril 10mg tab ORAL SCH ×2 (08:57→18:04)
[2019-02-26] MEDS ORDERED: HYDROcodone/Acetamin 5/325 tab ORAL PRN (09:15)
[2019-02-26] MEDS ORDERED: HYDROmorphone 1mg/ml Carpuject SUBQ PRN (09:15)
--- NOTE | 2019-02-26 09:36 | NUR ---
*-* INSURANCE *-* ALL AVAILABLE CLINICALS HAVE BEEN FAXED TO: [facility] P: [phone] F: [phone] & [facility]: [place] P: [phone] F: [phone]
[2019-02-26 11:20] VITALS: BP 150/78
--- NOTE | 2019-02-26 12:23 | Urology Progress Note ---
Assessment/Plan Assessment/Plan: 1. Urinary retention. 2. Presumed BPH. 3. 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 de los santos out and voiding cont flomax check PVR Subjective Allergies: Coded Allergies: NO KNOWN ALLERGIES (Verified Allergy, Unknown, 02/20/19) Subjective feels fair, de los santos removed AM, voiding Objective Last 24 Hour Vital Signs Date Time Temp Pulse Resp B/P (MAP) Pulse Ox O2 Delivery O2 Flow Rate FiO2 02/26/19 11:20 97.9 64 21 150/78 (102) 02/26/19 09:00 Room Air 02/26/19 08:57 140/74 02/26/19 08:00 97.9 67 20 140/74 (96) 100 02/26/19 04:00 98.1 60 18 146/74 (98) 96 02/26/19 00:00 98.3 58 17 149/78 (101) 98 02/25/19 21:00 Room Air 02/25/19 20:00 98.1 57 19 149/81 (103) 96 02/25/19 16:00 98.1 72 18 158/83 (108) Intake and Output 02/25/19 02/26/19 19:00 07:00 Intake Total 3890 ml 1130 ml Output Total 5895 ml 2700 ml Balance -2005 ml -1570 ml Intake Oral 2745 ml 100 ml IV Total 1045 ml 1030 ml Other 100 ml Output Urine Total 4675 ml 1975 ml Other 1220 ml 725 ml Current Medications Medications (Trade) Dose Ordered Sig/Bishop Route PRN Reason Start Time Stop Time Status Last Admin Dose Admin Acetaminophen (Tylenol) 650 mg Q4H PRN ORAL Mild Pain/Temp > 100.2 02/21/19 09:15 03/23/19 09:14 02/26/19 05:26 Acetaminophen/ Hydrocodone Bitart ([place] 5/325) 1 tab Q4H PRN ORAL Moderate Pain (Pain Scale 4-6) 02/26/19 09:15 03/05/19 09:14 Ampicillin Sodium/ Sulbactam Sodium 3 gm/Sodium Chloride 110 ml @ 220 mls/hr EVERY 6 HOURS IV 02/21/19 00:00 02/28/19 00:00 02/26/19 11:59 Ascorbic Acid (Vitamin C) 500 mg NEEDED PRN ORAL thick ileostomy effluent 02/22/19 11:30 03/24/19 11:29 02/25/19 09:33 Atorvastatin Calcium (Lipitor) 10 mg BEDTIME ORAL 02/22/19 21:00 03/24/19 20:59 02/25/19 20:42 Chlorhexidine Gluconate (Divya-Hex 2%) 1 applic DAILY@2000 TOPIC 02/20/19 20:00 03/22/19 19:59 02/25/19 20:43 Diphenhydramine HCl (Benadryl) 25 mg Q4H PRN ORAL Itching/Pruritis 02/22/19 21:30 03/24/19 21:29 02/22/19 21:30 Hydromorphone HCl (Dilaudid) 1 mg Q3H PRN SUBQ Severe Pain (Pain Scale 7-10) 02/26/19 09:15 03/05/19 09:14 Iron Sucrose 100 mg/Sodium Chloride 60 ml @ 240 mls/hr BEDTIME IV 02/24/19 21:00 02/28/19 21:14 02/25/19 20:43 Lisinopril (ZestriL) 10 mg DAILY ORAL 02/21/19 09:00 03/23/19 08:59 02/26/19 08:57 Lisinopril (ZestriL) 10 mg DAILYPRN PRN ORAL SBP>150 02/24/19 17:15 03/26/19 16:59 02/24/19 17:21 Lorazepam (Ativan) 1 mg HSPRN PRN SL Sleep 02/21/19 09:15 02/28/19 09:14 Lorazepam (Ativan) 1 mg Q4H PRN SL Muscle Spasm 02/21/19 09:15 02/28/19 09:14 Metronidazole 100 ml @ 100 mls/hr EVERY 6 HOURS IV 02/21/19 00:00 02/28/19 00:00 02/26/19 11:59 Ondansetron HCl (Zofran) 4 mg Q4H PRN IVP Nausea & Vomiting 02/21/19 09:15 03/23/19 09:14 Tamsulosin HCl (Flomax) 0.4 mg BEDTIME ORAL 02/24/19 21:00 03/26/19 20:59 02/25/19 20:42 Zolpidem Tartrate (Ambien) 5 mg HSPRN PRN ORAL Insomnia 02/20/19 10:30 02/27/19 10:29 Height (Feet): 5 Height (Inches): 9.00 Weight (Pounds): 156 Objective exam stable Oz Castro MD Feb 26, 2019 12:23
--- NOTE | 2019-02-26 13:16 | NUR ---
CASE MANAGEMENT:REVIEW 02/26/19 SI: POD #5 S/P REVISION OF DRAKE CONTINENT ILEOSTOMY RESOLVING ILEUS 97.9 67 20 140/74 100% ON RA IS: IV DEXTROSE X1 IV FLAGYL Q6HRS IV AMPICILLIN Q6HRS IVF@50/HR IV VENOFER QHS IV METRONIDAZOLE Q6HR FLOMAX PO QHS LISINOPRIL PO QD IV IRON SUCROSE QHS : MED/SURG STATUS 3 EAST PLAN: START BCIR LOW RESIDUE DIET VOIDING TRIAL IN AM maintain continuous drainage for drake pouch
[2019-02-26] MEDS ORDERED: D5 1/2NS w/KCl 20mEq 1,000 ML IV SCH (14:00)
[2019-02-26] MEDS ORDERED: NS 500ML ONE (14:03)
[2019-02-26] MEDS ORDERED: NS Irrig 1000ml ONE (14:03)
[2019-02-26 16:00] VITALS: BP 139/71
--- NOTE | 2019-02-26 16:24 | General Progress Note ---
Progress Note Progress Note AVSS Doing well. Shaikh removed earlier and patient voiding Abdomen soft. KUB showed no sig. bowel distention Stoma and peristomal incision healing nicely Urine 5075 BCIR ileo 1575 WBC 8100 Hgb 12.7 BMP wnl Imp. Improved Plan: d/c IV fluids BCIR low residue diet Start Sunshine pouch self-intubations in AM if stable Osito Rosenbaum MD Feb 26, 2019 16:24
--- NOTE | 2019-02-26 16:25 | Cardiology Progress Note ---
Assessment/Plan Status Narrative UC Malfunctioning Sunshine Ileostomy HTN- Hypercholesterolemia s/p revision of ileostomy pouch\ Urinary retention ?BPH Assessment/Plan Increase Lisinopril to 10 mg BID Ambulate I/S Routine post OP care Flomax started. Discussed with with RN. and with Dr. Rosenbaum Subjective Cardiovascular: Reports: no symptoms Respiratory: Reports: no symptoms Gastrointestinal/Abdominal: Reports: no symptoms; Denies: abdomen distended, abdominal pain Genitourinary: Reports: no symptoms, other Subjective 02/20-Patient admitted for revision of Sunshine Pouch. Pre-op EKG showed possible ANt. DC. Echo done today showed normal LV wall motion and EF. 02/21- s/p revision of ileostomy pouch 02/22- doing well, tolerating PO , no N/V 02/26- doing well, tolerationg PO,had urinary retention- de los santos placed and now DC 'd. Started on Flomax Has had increased BP over the past 2-3 days. Objective Last 24 Hour Vital Signs Date Time Temp Pulse Resp B/P (MAP) Pulse Ox O2 Delivery O2 Flow Rate FiO2 02/26/19 11:20 97.9 64 21 150/78 (102) 02/26/19 09:00 Room Air 02/26/19 08:57 140/74 02/26/19 08:00 97.9 67 20 140/74 (96) 100 02/26/19 04:00 98.1 60 18 146/74 (98) 96 02/26/19 00:00 98.3 58 17 149/78 (101) 98 02/25/19 21:00 Room Air 02/25/19 20:00 98.1 57 19 149/81 (103) 96 Cardiovascular: normal rate, no gallop/murmur Respiratory/Chest: lungs clear Abdomen: normal bowel sounds, non tender, soft, no organomegaly, no mass Extremities: non-tender, no calf tenderness, no swelling Intake and Output 02/25/19 02/26/19 19:00 07:00 Intake Total 3890 ml 1130 ml Output Total 5895 ml 2700 ml Balance -2005 ml -1570 ml Intake Oral 2745 ml 100 ml IV Total 1045 ml 1030 ml Other 100 ml Output Urine Total 4675 ml 1975 ml Other 1220 ml 725 ml Alistair Hurst MD Feb 26, 2019 16:25
--- NOTE | 2019-02-26 16:45 | NUR ---
NURSE NOTES: PVR DONE PER DR. HUYNH ORDER. NOTED 336 MLS RETAINED IN BLADDER. PATIENT STATES THEY ARE COMFORTABLE;DENIES PAIN OR ANY SENSATION OF NOT BEING ABLE TO EMPTY COMPLETELY. DR. HUYNH CALLED AND REPORTED OUTCOME. NO INTERVENTIONS AT THIS TIME; PER RN TO WATCH URINE OUTPUT.
--- NOTE | 2019-02-26 18:36 | NUR ---
NURSE NOTES: PATIENT REMAINS WITHOUT ANY DISCOMFORT UPON URINATING OR FEELING OF FULLNESS. TOLERATING BCIR DIET. UP AMBULATING AROUND UNIT. SPOUSE AT BEDSIDE.
--- NOTE | 2019-02-26 19:30 | NUR ---
NURSE NOTES: Received report from BUDDY Noyola. Patient is up and ambulating with by his side. Talkative, alert and oriented. Ileostomy catheter is draining dark brown liquid to gravity collected in drainage bag. Left upper arm PICC is c/d/i and asymptomatic with no c/o pain. Patient has no SOB on room and does not have bloating or nausea at this time. Will continue to monitor urinary output.
--- NOTE | 2019-02-26 19:39 | NUR ---
HAND-OFF: Report given to MANINDER CRESPO RN.
[2019-02-26 20:00] VITALS: BP 160/79
[2019-02-26] MEDS: Tamsulosin 0.4mg cap ORAL SCH (20:21)
[2019-02-26] MEDS: Dyna-Hex 2% Top Sol 2oz TOPIC SCH (20:21)
[2019-02-26] MEDS: Iron Sucrose 100 MG in NS 55 ML IV SCH (20:24)
[2019-02-27] MEDS: Ampicillin/Sulbactam Sod 3 GM in NS 110 ML IV SCH (06:33)
[2019-02-27] MEDS: Ascorbic Acid 500mg tab ORAL PRN ×3 (06:46→20:44)
--- NOTE | 2019-02-27 07:25 | NUR ---
NURSE NOTES: WALKING ROUNDS DONE WITH OUTGOING RN. PATIENT UP TO BEDSIDE FOR BREAKFAST. TOLERATING WELL. NEW ORDERS RECEIVED. DISCUSSED PLAN OF CARE WITH PATIENT AND SPOUSE. VERBALIZED UNDERSTANDING. NEEDS MET AT THIS TIME. CALL LIGHT WITHIN REACH.
[2019-02-27 08:00] VITALS: BP 145/81
--- NOTE | 2019-02-27 08:15 | NUR ---
HAND-OFF: Report given to BUDDY Noyola. Patient is in stable condition. Vitamin C was given per eMAR for thick effluent. Flushed 120cc of NS. Patient output 225 for a true ileo 105cc. Urine ouput 1,100.
[2019-02-27] MEDS: Lisinopril 10mg tab ORAL SCH ×2 (08:54→18:25)
--- NOTE | 2019-02-27 09:11 | NUR ---
NURSE NOTES: 1ST SELF-INTUBATION WITH RN SUPERVISION USING ROSALINDA CATHETER WAS SUCCESSFUL. EASILY GLIDED INTO STOMA, NO RESISTANCE MET. NO N/V NOTED. OUTPUT 140 CC.
--- NOTE | 2019-02-27 09:34 | Urology Progress Note ---
Assessment/Plan Assessment/Plan: 1. Urinary retention. 2. Presumed BPH. 3. 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 de los santos out and voiding cont flomax moderately elevated PVR monitor Subjective Allergies: Coded Allergies: NO KNOWN ALLERGIES (Verified Allergy, Unknown, 02/20/19) Subjective feels fair, voiding, PVR yest 336 cc Objective Last 24 Hour Vital Signs Date Time Temp Pulse Resp B/P (MAP) Pulse Ox O2 Delivery O2 Flow Rate FiO2 02/27/19 09:00 Room Air 02/27/19 08:54 145/81 02/27/19 08:00 98.4 83 19 145/81 (102) 98 02/26/19 21:00 Room Air 02/26/19 20:00 98.4 64 16 160/79 (106) 96 02/26/19 18:04 139/71 02/26/19 16:00 97.2 82 20 139/71 (93) 82 02/26/19 11:20 97.9 64 21 150/78 (102) Intake and Output 02/26/19 02/27/19 19:00 07:00 Intake Total 1580 ml 850 ml Output Total 2170 ml 1205 ml Balance -590 ml -355 ml Intake Oral 1240 ml 320 ml IV Total 260 ml 210 ml Other 80 ml 320 ml Output Urine Total 1325 ml 1100 ml Other 845 ml 105 ml # Voids 3 Current Medications Medications (Trade) Dose Ordered Sig/Bishop Route PRN Reason Start Time Stop Time Status Last Admin Dose Admin Acetaminophen (Tylenol) 650 mg Q4H PRN ORAL Mild Pain/Temp > 100.2 02/21/19 09:15 03/23/19 09:14 02/26/19 05:26 Acetaminophen/ Hydrocodone Bitart ([place] 5/325) 1 tab Q4H PRN ORAL Moderate Pain (Pain Scale 4-6) 02/26/19 09:15 03/05/19 09:14 Ascorbic Acid (Vitamin C) 500 mg NEEDED PRN ORAL thick ileostomy effluent 02/22/19 11:30 03/24/19 11:29 02/27/19 06:46 Atorvastatin Calcium (Lipitor) 10 mg BEDTIME ORAL 02/22/19 21:00 03/24/19 20:59 02/26/19 20:21 Chlorhexidine Gluconate (Divya-Hex 2%) 1 applic DAILY@1999 TOPIC 02/20/19 20:00 03/22/19 19:59 02/26/19 20:21 Diphenhydramine HCl (Benadryl) 25 mg Q4H PRN ORAL Itching/Pruritis 02/22/19 21:30 03/24/19 21:29 02/22/19 21:30 Hydromorphone HCl (Dilaudid) 1 mg Q3H PRN SUBQ Severe Pain (Pain Scale 7-10) 02/26/19 09:15 03/05/19 09:14 Iron Sucrose 100 mg/Sodium Chloride 60 ml @ 240 mls/hr BEDTIME IV 02/24/19 21:00 02/28/19 21:14 02/26/19 20:24 Lisinopril (ZestriL) 10 mg BID ORAL 02/26/19 18:00 03/23/19 08:59 02/27/19 08:54 Lisinopril (ZestriL) 10 mg DAILYPRN PRN ORAL SBP>150 02/24/19 17:15 03/26/19 16:59 02/24/19 17:21 Lorazepam (Ativan) 1 mg HSPRN PRN SL Sleep 02/21/19 09:15 02/28/19 09:14 Lorazepam (Ativan) 1 mg Q4H PRN SL Muscle Spasm 02/21/19 09:15 02/28/19 09:14 Ondansetron HCl (Zofran) 4 mg Q4H PRN IVP Nausea & Vomiting 02/21/19 09:15 03/23/19 09:14 Tamsulosin HCl (Flomax) 0.4 mg BEDTIME ORAL 02/24/19 21:00 03/26/19 20:59 02/26/19 20:21 Zolpidem Tartrate (Ambien) 5 mg HSPRN PRN ORAL Insomnia 02/20/19 10:30 02/27/19 10:29 Height (Feet): 5 Height (Inches): 9.00 Weight (Pounds): 152 Objective exam stable Oz Castro MD Feb 27, 2019 09:34
[2019-02-27] MEDS ORDERED: Vitamin B12 1000mcg/ml Inj IM SCH (11:45)
[2019-02-27 12:00] VITALS: BP 160/94
[2019-02-27] MEDS ORDERED: Silver Nitrate Stick TOPIC PRN (12:00)
--- NOTE | 2019-02-27 12:02 | General Progress Note ---
Progress Note Progress Note AVSS doing well. Stoma and peristomal incision healing nicely. AgNo3 to superior border of stoma Urine 1110 BCIR ileo 950 Tolerating BCIR diet Imp. doing well Plan: Remove BCIR indwelling catheter and begin RN supervised self-intubations q3h am to hs and prn To try 30 Fr Ashly catheter in addition to his 26 Fr silicone Shaikh to intubate Anticipate discharge in AM if does well full instructions/limitations/supplies discussed/provided f/u office 1 week Osito Rosenbaum MD Feb 27, 2019 12:02
[2019-02-27] MEDS: Lisinopril 10mg tab ORAL PRN (13:20)
[2019-02-27] MEDS ORDERED: Iron Sucrose 200 MG in NS 110 ML IV ONE (14:00)
--- NOTE | 2019-02-27 14:14 | NUR ---
*-* INSURANCE *-* ALL AVAILABLE CLINICALS HAVE BEEN FAXED TO: [facility] P: [phone] F: [phone] & [facility]: [place] P: [phone] F: [phone] Addendum: 02/27/19 at 1415 by ZULLY MCDONALD CM SPOKE TO NCM:[facility] AND SHE DID RECEIVE CLINICALS
--- NOTE | 2019-02-27 15:32 | NUR ---
CASE MANAGEMENT:REVIEW 02/27/19 SI: POD #6 S/P REVISION OF DRAKE CONTINENT ILEOSTOMY RESOLVING ILEUS 98.4 83 19 145/81 100% ON RA IS: ZESTRIL PO BID LIPITOR PO QHS FLOMAX PO QHS : MED/SURG STATUS 3 [facility] PLAN: DISCHARGE IN AM
[2019-02-27 16:00] VITALS: BP 154/78
--- NOTE | 2019-02-27 16:54 | NUR ---
NURSE NOTES: PATIENT REMAINS STABLE. RN SUPERVISED SELF-INTUBATIONS GONG WELL. TOLERATING BCIR DIET WELL. NO ISSUES WITH URINATING. UP AMBULATING. GAIT STEADY. DISCHARGE SUPPLIES GIVEN. WILL CONTINUE TO MONITOR.
--- NOTE | 2019-02-27 18:00 | NUR ---
NURSE NOTES: PICC LINE REMOVED FROM CONRADO PER MD ORDER. TIP OF CATHETER AT 45 CM REMOVED. PULSE ON SPO2 98% RA HR 84. PATIENT DENIES SOB OR CHEST PAIN. PATIENT TO LAY FLAT FOR 20 MINS DIRECTED.BED IN LOW AND LOCKED POSITION, CALL LIGHT WITHIN REACH.
[2019-02-27] MEDS ORDERED: NS 275ml ONE (18:33)
--- NOTE | 2019-02-27 18:57 | NUR ---
HAND-OFF: Report given to MANINDER CRESPO RN.
[2019-02-27 20:00] VITALS: BP 147/84
--- NOTE | 2019-02-27 20:00 | NUR ---
NURSE NOTES: Received report from BUDDY Noyola. Patient is alert, oriented and talkative. He is sitting at bedside with no c/o pain, nausea, or discomfort. Patient successfully self intubated with 100cc flush and 200cc output of brown effluent. No difficulties with advancing the catheter. Will continue plan of care.
[2019-02-27] MEDS: Tamsulosin 0.4mg cap ORAL SCH (20:44)
--- NOTE | 2019-02-28 07:15 | NUR ---
HAND-OFF: Report given to BUDDY Bergman. Patient in stable condition.
--- NOTE | 2019-02-28 07:28 | NUR ---
NURSE NOTES: Pt has pending discharge for today. Dr Martinez called gave instruction to do post void residual prior to discharge
[2019-02-28 08:00] VITALS: BP 151/81
--- NOTE | 2019-02-28 08:42 | NUR ---
NURSE NOTES: Dr Stewart phoned made aware that pt had a post void residual of 301 ...stated that it is baseline. Pt is asymptomatic, denies pain or discomfort to lower abdominal area. Abdomen slightly distended
--- NOTE | 2019-02-28 08:56 | Urology Progress Note ---
Assessment/Plan Assessment/Plan: 1. Urinary retention. 2. Presumed BPH. 3. 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 de los santos out and voiding cont flomax, rx given moderately elevated PVR, likely chronic d/w pt fully will f/u with urologist in [place] Subjective Allergies: Coded Allergies: NO KNOWN ALLERGIES (Verified Allergy, Unknown, 02/20/19) Subjective feels fair, voiding, for dc today, PVR this morning 301 cc Objective Last 24 Hour Vital Signs Date Time Temp Pulse Resp B/P (MAP) Pulse Ox O2 Delivery O2 Flow Rate FiO2 02/28/19 08:00 98.0 14 151/81 (104) 98 02/27/19 21:00 Room Air 02/27/19 20:00 97.3 74 19 147/84 (105) 98 02/27/19 18:25 154/78 02/27/19 16:00 98.3 74 20 154/78 (103) 98 02/27/19 13:20 160/94 02/27/19 12:00 98.2 92 21 160/94 (116) 98 02/27/19 09:00 Room Air Intake and Output 02/27/19 02/28/19 19:00 07:00 Intake Total 1950 ml 625 ml Output Total 1760 ml 970 ml Balance 190 ml -345 ml Intake Oral 1620 ml 360 ml IV Total 330 ml Other 265 ml Output Urine Total 1250 ml 650 ml Other 510 ml 320 ml Current Medications Medications (Trade) Dose Ordered Sig/Bishop Route PRN Reason Start Time Stop Time Status Last Admin Dose Admin Acetaminophen (Tylenol) 650 mg Q4H PRN ORAL Mild Pain/Temp > 100.2 02/21/19 09:15 03/23/19 09:14 02/26/19 05:26 Acetaminophen/ Hydrocodone Bitart ([place] 5/325) 1 tab Q4H PRN ORAL Moderate Pain (Pain Scale 4-6) 02/26/19 09:15 03/05/19 09:14 Ascorbic Acid (Vitamin C) 500 mg NEEDED PRN ORAL thick ileostomy effluent 02/22/19 11:30 03/24/19 11:29 02/27/19 20:44 Atorvastatin Calcium (Lipitor) 10 mg BEDTIME ORAL 02/22/19 21:00 03/24/19 20:59 02/27/19 20:44 Diphenhydramine HCl (Benadryl) 25 mg Q4H PRN ORAL Itching/Pruritis 02/22/19 21:30 03/24/19 21:29 02/22/19 21:30 Hydromorphone HCl (Dilaudid) 1 mg Q3H PRN SUBQ Severe Pain (Pain Scale 7-10) 02/26/19 09:15 03/05/19 09:14 Lisinopril (ZestriL) 10 mg BID ORAL 02/26/19 18:00 03/23/19 08:59 02/27/19 18:25 Lisinopril (ZestriL) 10 mg DAILYPRN PRN ORAL SBP>150 02/24/19 17:15 03/26/19 16:59 02/27/19 13:20 Lorazepam (Ativan) 1 mg HSPRN PRN SL Sleep 02/21/19 09:15 02/28/19 09:14 Lorazepam (Ativan) 1 mg Q4H PRN SL Muscle Spasm 02/21/19 09:15 02/28/19 09:14 Ondansetron HCl (Zofran) 4 mg Q4H PRN IVP Nausea & Vomiting 02/21/19 09:15 03/23/19 09:14 Tamsulosin HCl (Flomax) 0.4 mg BEDTIME ORAL 02/24/19 21:00 03/26/19 20:59 02/27/19 20:44 Height (Feet): 5 Height (Inches): 9.00 Weight (Pounds): 152 Oz Castro MD Feb 28, 2019 08:56
[2019-02-28 09:25] VITALS: BP 151/81
[2019-02-28] MEDS: Lisinopril 10mg tab ORAL SCH (09:25)
--- NOTE | 2019-02-28 09:33 | NUR ---
NURSE NOTES: Spoke to regarding blood pressure. Per : at home, Take Lisinopril 20 mg in the morning and take Lisinopril 10 mg at night. And will call [facility] [place] and give order. Notified patient and instructed to follow up with cardiology at home. Patient verbalized understanding.
[2019-02-28] MEDS ORDERED: NS 275ml ONE (10:14)
[2019-02-28] MEDS ORDERED: Tubing IV Secondary IV ONE (10:14)
--- NOTE | 2019-02-28 10:44 | NUR ---
NURSE NOTES: Pt discharged . Provided with discharge packet, to include frequently asked questions related to infection s/p surgery , and urinary retention. is at bedside,
--- NOTE | 2019-02-28 13:22 | NUR ---
*-* INSURANCE *-* ALL AVAILABLE CLINICALS HAVE BEEN FAXED TO: [facility] P: [phone] F: [phone] & [facility]: T[place]REE P: [phone] F: [phone]
--- NOTE | 2019-03-01 09:15 | Discharge Summary ---
Discharge Summary Hospital Course Date of Admission Feb 20, 2019 at 09:04 Date of Discharge Feb 28, 2019 at 10:15 Admitting Diagnosis Reason for Hospitalization: elective surgery HPI Olayinka Oliver is a 68 year old male who was admitted on Feb 20, 2019 at 09: 04 for Malfunctioning Of Sunshine Continent Ileostomy Consultations Dr Hurst-IM, cardio Dr Castro - urologist Procedures s/p 02/21/ by Dr Rosenbaum Revision of recurrent stricture of Sunshine continent ileostomy including desmoplastic peristomal skin Hospital Course patient admitted endoscopy was attempted on 02/20, however it was too small to allow scope to enter patient noted to have large incisional hernia bulging to right upper quadrant for 20 years patient undergone dual-lumen PICC line placement. CXR revealed suspected pleural parenchymal scarring left lung base; no acute cardiopulmonary pathology laboratory work-up revealed no leukocytosis , stable hemoglobin and hematocrit stable electrolytes and renal parameters patient remained hemodynamically stable patient subsequently undergone on 02/21 revision of recurrent stricture of Sunshine continent ileostomy, including desmoplastic peristomal skin patient tolerated procedure well laparotomy was not performed, and Shaikh catheter was removed after completion of the surgery postoperatively , continuous drainage of Sunshine pouch was maintained patient was continued on IV antibiotic patient started on BCIR diet and IVF was discontinued stoma remained pink; incision clean and dry the next day patient complained of bloating. output from BCIR ileostomy was closely monitored intake and output was closely monitored patient was made n.p.o. and started again on IV fluids ambulation was encouraged patient developed acute urinary retention with 1400cc in bladder after Shaikh placed urology consult was requested RN replaced Sunshine pouch catheter with 26 Cameroonian silicone Shaikh with better output and less abdominal distention laboratory work-up revealed iron and B12 deficiency , present on admission patient received B12 intramuscular injection and started on IV Venofer continued drainage of BCIR catheter was maintained urologist followed Flomax was added to existing regimen for presumed BPH and probably atonic neurogenic bladder urologist recommended voiding trial in a day or two Shaikh catheter was subsequently discontinued patient was able to void without difficulty, even though patient had moderately elevated postvoid residual -336 ml, however, he denied pain, difficulties with voiding or sensation of incomplete voiding field clerk/IM followed echocardiogram demonstrated preserved ejection fraction of 60% no evidence of left ventricular hypertrophy. No evidence of wall motion abnormality. Pressure 19. antihypertensive medication regimen was optimized blood pressure was managed with STERLING inhibitor and remained stable ileus was resolving patient undergone stat KUB , which revealed postsurgical changes , but no definite acute process patient started on clear liquid diet as tolerated stoma and peristomal incision were healing well intake and output were closely monitored IV fluids discontinued. patient was advanced to BCIR low residue diet patient tolerated diet silver nitrate was applied to the superior border of stoma BCIR indwelling catheter was removed and patient subsequently started on supervised self intubation every 3 hours morning to evening and as needed surgeon suggested to try 30 Cameroonian Ashly catheter in addition to his 26 Cameroonian discharge instructions/ limitations/ supplies discussed, provided patient to follow-up with surgeon in the office in week FINAL DIAGNOSES 1. 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 2. Incisional hernia. 3. History of ulcerative colitis. 4. STATUS POST MULTIPLE ABDOMINAL OPERATIONS: 4.1. Proctocolectomy and Gely ileostomy in 1972. 4.2. Sunshine continent intestinal reservoir in 1991. 4.3. Revision of Sunshine pouch stoma in 2001. 4.4. Revision of Sunshine pouch stoma stricture, November 2017 5. s/p revision of Sunshine pouch stoma 6, Mild postoperative ileus-resolved 7, Acute urinary retention-resolved 8. Probably BPH 9. Probably atonic neurogenic bladder 10 HTN 11. Hypercholesteremia Discharge Medications Changed Medications: Lisinopril (Lisinopril*) 5 Mg Tablet 10 MG ORAL BID for hypertension , TAB (Changed from: DAILY) At home, take Lisinopril 20 mg in the morning and Lisinopril 10 mg at night. Follow up with [facility] at home. Continued Medications: Baclofen* (Baclofen*) 10 Mg Tablet 10 MG ORAL PRN for For Pain, TAB (This prescription has been renewed) Meloxicam* (Meloxicam*) 7.5 Mg Tablet 7.5 MG PO PRN for For Pain, TAB (This prescription has been renewed) Simvastatin (Zocor) 20 Mg Tablet 20 MG ORAL BEDTIME for high cholesterol , TAB (This prescription has been renewed) Discharge Condition Upon Discharge: stable Discharge Disposition Patient was discharged home Discharge Instructions Discharge Instructions Special Instructions I have been assigned to complete a D/C Summary on this account. I was not involved in the patient management Josie High NP Mar 01, 2019 09:15
--- NOTE | 2019-03-01 13:55 | Cardiology Report ---
APPROVED REPORT EKG Measurement Heart [id number] Sinus rhythm with premature atrial complexes Septal infarct, age undetermined Abnormal ECG
--- NOTE | 2019-03-01 15:16 | NUR ---
*-* INSURANCE *-* discharge summary have BEEN FAXED TO: [facility] P: [phone] F: [phone] & [facility] Onel [place]: TYREE P: [phone] F: [phone]
== END 2019-02-28 10:15 | disposition home or self-care (01) | DRG 348 ==
LOC: 3E 09:04
PROC: 0WQFXZ2 Repair Abdominal Wall, Stoma, External Approach (ICD-10-PCS; principal; 2019-02-21 07:30)
DX: K94.13 Enterostomy malfunction (principal); K56.7 Ileus, unspecified; K43.2 Incisional hernia without obstruction or gangrene; Y83.3 Surgical operation with formation of external stoma as the cause of abnormal reaction of the patient, or of later complication, without mention of misadventure at the time of the procedure; I10 Essential (primary) hypertension; Z87.19 Personal history of other diseases of the digestive system; R33.9 Retention of urine, unspecified; N40.0 Benign prostatic hyperplasia without lower urinary tract symptoms; N31.9 Neuromuscular dysfunction of bladder, unspecified; E78.00 Pure hypercholesterolemia, unspecified
CPT/HCPCS: 36415; 36569; 71045; 74018; 76937; 80048; 80053; 81003; 82248; 82607; 82746; 83540; 83550; 85007; 85025; 85610; 85730; 86850; 86900; 86901; 93005; 93306; 94003; 94150; J2710